=== PATIENT | female | born 1950 | race Caucasian/White ===

== ENCOUNTER 2020-01-15 10:28 | Emergency (ER) | payer MEDICARE, OTHER, SELFPAY ==
[2020-01-15 10:37] VITALS: BP 148/84; PULSE 67; RESP 17; TEMP 36.4; O2SAT 97; BMI 28.0
--- NOTE | 2020-01-15 11:14 | W.ED.EXTPRO ---
HPI - Extremity Problem General: Chief complaint: Extremity Injury, Lower Stated complaint: Rt knee pain Time Seen by Provider: 01/15/20 10:55 History of Present Illness: HPI Narrative: Patient has a right knee pain. Said she hurt it 3 to 4 months ago and started getting better then she got a knee brace because started hurting again and and then walking last night she felt some pain after walking for a while to the right knee and it was difficult to walk after that she denies any falls or any other related injuries Complaint: joint pain Onset (ago): month(s) Pain Consistency: constant Location: right and knee Severity scale (1-10): 6 Quality: aching Radiation: none Relieving factors: immobilization Exacerbating factors: range of motion and weight bearing Associated symptoms: Reports no associated symptoms; Deny chest pain, fever(s) or rash Review of Systems Const: Denies: fever(s), chills or body aches Eyes: Denies: change in vision or blurry vision ENMT: Denies: throat pain or nasal congestion Card: Denies: chest pain or dyspnea on exertion Resp: Denies: dyspnea, productive cough or non-productive cough GI: Denies: abdominal pain, nausea or vomiting Musc: Reports: joint pain (Pain with certain movements and this pain that she had was the same pain she had a few months ago), limited range of motion and other (Patient relates that she has pain when she tries to move any objects with his right foot which causes pain in the knee and she also has pain with trying to lift the leg when like she said in chair which is all consistent with meniscus type tear); Denies: extremity pain, joint swelling, joint redness, joint warmth or joint stiffness Skin/Breast: Denies: rash Neuro: Denies: headache(s) Psych: Denies: anxiety or depression Juno/Lymph: Denies: easy bruising PFS ED PFSH: Social History (Updated 01/15/20 @ 10:42 by Kristian Moore RN) Smoking and tobacco status: never smoked Alcohol intake: never Physical Exam Const: COMMON NORMALS: no acute distress, average body habitus and patient oriented x3 HENMT: COMMON NORMALS: normocephalic HEAD & SCALP: normal to inspection and normocephalic FACE & SINUS: normal facial exam Eye: COMMON NORMALS: conjunctivae normal GENERAL EYE: appearance normal, both eyes and all related structures CONJUNCTIVA: Yes conjunctivae normal Neck/C-Spine: COMMON NORMALS: no JVD Chest: COMMONS NORMALS: normal inspection of the chest Resp: COMMON NORMALS: normal respiratory effort Cardio: COMMON NORMALS: no JVD, regular rate and regular rhythm RATE: regular rate RHYTHM: regular rhythm Extremity: COMMON NORMALS: normal to inspection and full ROM RIGHT LOWER EXTREMITY: Yes knee joint (Patient has pain to the medial aspect of the knee joint does have some pain with range of motion patient does have significant pain with hyperextension to that medial aspect suspect meniscus tear) Neuro: COMMON NORMALS: patient oriented x3 Course Vital Signs: Vital signs: Vital Signs Temperature 97.5 F L 01/15/20 10:37 Pulse Rate 67 01/15/20 10:37 Respiratory Rate 17 01/15/20 10:37 Blood Pressure 148/84 01/15/20 10:37 Pulse Oximetry 97 01/15/20 10:37 Discharge Plan Discharge Patient Disposition: Home Clinical Impression: Knee meniscus pain Qualifiers: Laterality: right Qualified Code(s): M25.561 - Pain in right knee Condition: Stable Prescriptions: New Voltaren 1 % gel 4 gm TOPICAL QID Qty: 100 RF: 0 ketorolac 10 mg tablet 10 mg PO Q8H PRN (Reason: pain) 3 Days Qty: 9 RF: 0 Discharge Orders: Discharge Order (Routine); Ordered 01/15/20 Ordered By: Ronnie Joseph Referrals: Khadar Michelle MD [Family Provider] - Discharge Diet: Usual diet Discharge Activity: Increase activity as tolerated Patient Instructions: Knee Pain (ED), Torn Meniscus Activity Restrictions/Additional Instructions: Follow-up with medical provider as directed. Take medications as prescribed. Return to the ER or your medical provider if condition worsens. Please read and understand discharge instructions. If any questions ask please. Follow-up Dr. Michelle see about getting referral for physical therapy and talk about possibility of an MRI Coding Level of Care Code ED Physician Office Rep for Antonio Amador
[2020-01-15 11:16] VITALS: BP 135/82; PULSE 66; RESP 17; O2SAT 97
== END 2020-01-15 11:17 | disposition home or self-care (01) ==
LOC: ER 11:28
PROVIDERS: Emergency Provider Nurse Practitioner Family; PCP Family Medicine
DX: M25.561 Pain in right knee (principal)
CPT/HCPCS: 12345; 73562; 99281

== ENCOUNTER 2020-01-15 14:23 | Outpatient (CLI) | payer MEDICARE, OTHER, SELFPAY ==
--- NOTE | 2020-01-15 14:33 | XRR_ITS ---
PROCEDURE INFORMATION: Exam: XR Right Knee Exam date and time: 01/15/2020 2:48 PM Age: 69 years old Clinical indication: Pain; Knee; Right; Additional info: Right knee pain TECHNIQUE: Imaging protocol: XR Right knee. Views: 3 views. COMPARISON: No relevant prior studies available. FINDINGS: Bones/joints: Negative for acute bony abnormality. Soft tissues: Suprapatellar bursa effusion XR/XR knee RT 3V* [id number] IMPRESSION: No acute findings.
== END 2020-01-15 14:24 | disposition home or self-care (01) ==
LOC: RAD 14:29
PROVIDERS: PCP Family Medicine; Visit Provider Family Medicine
DX: M25.561 Pain in right knee (principal)
CPT/HCPCS: 73562

== ENCOUNTER 2020-03-31 13:05 | Outpatient (CLI) | payer MEDICARE, OTHER, SELFPAY ==
--- NOTE | 2020-03-31 13:10 | MM_ITS ---
WS: [id number] SCREENING DIGITAL MAMMOGRAM WITH CAD HISTORY: SCREENING COMPARISON: 02/26/2019, 11/14/2017 and 11/08/2016 Bilateral CC and MLO views submitted. Computer aided detection analyzed. Breast composition: The breasts are heterogeneously dense, which may obscure small masses. Asymmetry measuring 11 mm in the mid to posterior medial RIGHT breast near the 3:00 axis. Margins are ill-defined. Additional benign scattered calcifications in each breast. MM/[place] [id number] IMPRESSION: BI-RADS: 0-Incomplete: Need additional imaging evaluation FOLLOW UP: Need Additional Imaging RIGHT breast: Spot compression views (CC and MLO). True ML. Ultrasound to follo w if abnormality persists.
== END 2020-03-31 13:06 | disposition home or self-care (01) ==
PROVIDERS: PCP Family Medicine; Visit Provider Family Medicine
DX: Z12.31 Encounter for screening mammogram for malignant neoplasm of breast (principal); N64.89 Other specified disorders of breast
CPT/HCPCS: 77067

== ENCOUNTER 2020-04-23 12:41 | Outpatient (CLI) | payer MEDICARE, OTHER, SELFPAY ==
--- NOTE | 2020-04-23 13:00 | MM_ITS ---
WS: [id number] ADDITIONAL VIEWS RIGHT BREAST RIGHT breast ultrasound, limited HISTORY: abnormal mammo 11mm asymmetry RT breast COMPARISON: 03/31/2020, 02/26/2019 and 11/14/2017 Compression views right CC and MLO projection. True ML also submitted. Asymmetry persists in the medial RIGHT breast at a posterior depth. Margins are slightly spiculated a nd there are a few calcifications. Mass is along the 2 o'clock axis measuring 12 mm. RIGHT breast ultrasound, limited. Ultrasound at 2:00, 2 cm nipple demonstrates a hypoechoic mass with slightly lobulated margins measur ing 10 x 8 x 8 mm. No increased vascularity. Mass is posterior to the chest wall and corresponds to t he mammographic abnormality. MM/[place] [id number] IMPRESSION: BI-RADS: 4-Suspicious Finding-Biopsy Should Be Considered FOLLOW-UP: Biopsy Recommended Ultrasound-guided biopsy recommended of the 10 mm mass at 2:00 RIGHT breast. Notified Khadar Michelle MD at 04/23/2020 2:48 PM.
--- NOTE | 2020-04-23 13:30 | US_ITS ---
WS: [id number] ADDITIONAL VIEWS RIGHT BREAST RIGHT breast ultrasound, limited HISTORY: abnormal mammo 11mm asymmetry RT breast COMPARISON: 03/31/2020, 02/26/2019 and 11/14/2017 Compression views right CC and MLO projection. True ML also submitted. Asymmetry persists in the medial RIGHT breast at a posterior depth. Margins are slightly spiculated a nd there are a few calcifications. Mass is along the 2 o'clock axis measuring 12 mm. RIGHT breast ultrasound, limited. Ultrasound at 2:00, 2 cm nipple demonstrates a hypoechoic mass with slightly lobulated margins measur ing 10 x 8 x 8 mm. No increased vascularity. Mass is posterior to the chest wall and corresponds to t he mammographic abnormality. US/US breast RT limited* [id number] IMPRESSION: BI-RADS: 4-Suspicious Finding-Biopsy Should Be Considered FOLLOW-UP: Biopsy Recommended Ultrasound-guided biopsy recommended of the 10 mm mass at 2:00 RIGHT breast. Notified Khadar Michelle MD at 04/23/2020 2:48 PM.
== END 2020-04-23 12:42 | disposition home or self-care (01) ==
LOC: RADSHAW 12:46
PROVIDERS: PCP Family Medicine; Visit Provider Family Medicine
DX: R92.8 Other abnormal and inconclusive findings on diagnostic imaging of breast (principal); N63.12 Unspecified lump in the right breast, upper inner quadrant
CPT/HCPCS: 76642; 77065

== ENCOUNTER 2020-05-06 06:55 | Outpatient (CLI) | payer MEDICARE, OTHER, SELFPAY ==
--- NOTE | 2020-05-06 08:00 | US_ITS ---
WS: [id number] ULTRASOUND-GUIDED RIGHT BREAST BIOPSY HISTORY: abnormal mammogram 10mm right breast mass COMPARISON: None. Procedure, risks and complications are explained to the patient. Medications are reviewed. Consent is obtained. The mass in the RIGHT breast is localized with ultrasound. Mass localizes to 2:00, 2 cm from the nipp le. Skin is cleansed with ChloraPrep and anesthetized with 1% buffered lidocaine. Small dermatome is made. Under sterile conditions mass is biopsied with a 14-gauge Achieve needle. Multiple core biopsie s are performed. Material placed in formalin and sent to pathology for review. No complications encou ntered. Breast tissue marker (Bard ultrasound enhanced ribbon): Single. Patient left the radiology suite with no complications. Patient is instructed to return to [facility] or [facility] with any concerns. US/[place] [id number] IMPRESSION: 1. Uncomplicated core needle biopsy RIGHT breast mass at 2:00, 2 cm from the n ipple. PATHOLOGY: Invasive ductal carcinoma, poorly differentiated. RECOMMENDATION: Follow-up with Dr. Michelle, breast surgeon and oncology.
[2020-05-23 14:18] LABS: Miscellaneous Test See Scanned Lab Rpt
== END 2020-05-06 06:56 | disposition home or self-care (01) ==
LOC: RAD 06:59
PROVIDERS: PCP Family Medicine; Visit Provider Family Medicine
DX: N63.12 Unspecified lump in the right breast, upper inner quadrant (principal); C50.311 Malignant neoplasm of lower-inner quadrant of right female breast
CPT/HCPCS: 19083; 88305

== ENCOUNTER → 2020-05-28 13:04 | Outpatient (BNVA) | payer MEDICARE, OTHER, SELFPAY | PROVIDERS: PCP Family Medicine; Visit Provider Surgery | DX: Z11.59 Encounter for screening for other viral diseases (principal); C50.911 Malignant neoplasm of unspecified site of right female breast | CPT/HCPCS: 87635 ==

== ENCOUNTER 2020-06-04 07:27 | Day surgery (SDC) | payer MEDICARE, OTHER, SELFPAY ==
[2020-06-03 09:34] VITALS: BMI 26.0
[2020-06-04] VITALS (8 sets, daily range): BP systolic 133–191; BP diastolic 74–91; PULSE 49–77; RESP 10–18; TEMP 35.6–36.2; O2SAT 93–100
--- NOTE | 2020-06-04 | US_ITS ---
WS: [id number] ULTRASOUND-GUIDED RIGHT BREAST NEEDLE LOCALIZATION HISTORY: MALIGNANT NEOPLASM OF RIGHT BREAST, RIGHT breast mass at 2:00. Procedure, risks and complications were explained to the patient. Consent is obtained. Skin is cleansed with ChloraPrep and anesthetized with 1% buffered lidocaine. Needle and guidewire pl aced to the area of concern with no complications. Ultrasound guidance performed during the needle lo calization. Guidewire is left within the lesion. Guidewire secured and no complications encountered. Patient is being transported to the OR suite. Specimen radiograph is also reviewed. RIGHT breast mass and localization wire are included in the spe cimen. RECOMMENDATIONS: Follow-up with breast surgeon and oncology. US/US breast surgical specimen IMPRESSION: 1. Uncomplicated wire localization RIGHT breast mass at 2:00. PATHOLOGY RESULTS: Invasive ductal carcinoma, poorly differentiated. There is a lso a component of ductal carcinoma in situ. As indicated within the pathology reports synoptic report will be added post immunohistochemical stains and elayne ornelas studies.
--- NOTE | 2020-06-04 07:55 | US_ITS ---
WS: [id number] ULTRASOUND-GUIDED RIGHT BREAST NEEDLE LOCALIZATION HISTORY: MALIGNANT NEOPLASM OF RIGHT BREAST, RIGHT breast mass at 2:00. Procedure, risks and complications were explained to the patient. Consent is obtained. Skin is cleansed with ChloraPrep and anesthetized with 1% buffered lidocaine. Needle and guidewire pl aced to the area of concern with no complications. Ultrasound guidance performed during the needle lo calization. Guidewire is left within the lesion. Guidewire secured and no complications encountered. Patient is being transported to the OR suite. Specimen radiograph is also reviewed. RIGHT breast mass and localization wire are included in the spe cimen. RECOMMENDATIONS: Follow-up with breast surgeon and oncology. US/[place] [id number] IMPRESSION: 1. Uncomplicated wire localization RIGHT breast mass at 2:00. PATHOLOGY RESULTS: Invasive ductal carcinoma, poorly differentiated. There is a lso a component of ductal carcinoma in situ. As indicated within the pathology reports synoptic report will be added post immunohistochemical stains and elayne ornelas studies.
--- NOTE | 2020-06-04 07:57 | ANES.PREANE2 ---
Pre-Anesthetic Assessment Pre-Anesthetic Assessment: Height/Weight: Height 1.74 m Weight 78.925 kg Preop Diagnosis: Right breast cancer Proposed Procedure: Operation Date: 06/04/20 10:35 Proposed Procedures p right Breast Biopsy Needle Localization with lumpectomy [id number] c50.911(Right) - Horace Dalton MD s Sentinal Lymph Node Biopsy(Not Applicable) - Horace Dalton MD Familial anesthetic complications: PONV Was Beta Ingrid taken within 24 hours: Yes Last intake: Intake NPO > 8 hrs Last Liquid Date 06/03/20 Last Liquid Time 22:00 Last Solid Date 06/03/20 Last Solid Time 18:00 Social: Social History: No alcohol and No tobacco Exam: Pre-Anes Outpt Exam: alert, oriented x 3, clear to auscultation bilaterally and regular rate & rhythm Airway: Cervical ROM: WNL MP: 2 Dentition: Partials and Other (missing) CV/HEM: CV/HEM: Arrythmia (Irregular beats) and HTN Comments: mitral valve prolapse (able to achieve > 4 METS, says it doesn't bother her and she was told it wasn't serious) GI: GI: GERD and Hiatus hernia Metabolic: Metabolic: Hyperlipidemia Anesthetic Plan: ASA status: 3 Anesthesia: General Risk of > 500 ml blood loss (7ml/kg in children): No PFSH Anesthesia PFSH: Medical History (Updated 05/23/20 @ 17:04 by Horace Dalton MD) Arthritis Breast cancer, right Depression GERD (gastroesophageal reflux disease) Hiatal hernia Hyperlipidemia Hypertension Mitral valve prolapse Surgical History H/O colonoscopy 2016 H/O unilateral oophorectomy left H/O: hysterectomy History of cataract surgery History of lumpectomy of left breast History of lumpectomy of right breast Family History Family/Other Cancer maternal side, an aunt and 3 cousins with breast cancer Other CAD (coronary artery disease) Hypertension Denies family history of Diabetes Anesthesia complication Bleeding disorder Social History Smoking and tobacco status: never smoked Alcohol intake: never Household members: spouse Marital status: Current occupational status: retired History of recent travel: No Data Anesthesia Cardiac Studies: No Data to Display
[2020-06-04] MEDS: sodium chloride 0.9% 1,000 ML 30 ML IV (09:18)
--- NOTE | 2020-06-04 11:50 | W.PM.OPSUD ---
Surgery/Procedure H&P Update DATE OF PROCEDURE: June 04, 2020 DATE H&P PERFORMED: 05/23/20 H&P UPDATE INFORMATION: I have reviewed H&P completed within last 30 days, I have examined patient prior to procedure and No changes to prior documentation PREOP DIAGNOSIS: Right breast cancer PLANNED PROCEDURE: Operation Date: 06/04/20 10:35 Proposed Procedures p right Breast Biopsy Needle Localization with lumpectomy [id number] c50.911(Right) - Horace Dalton MD s Sentinal Lymph Node Biopsy(Not Applicable) - Horace Dalton MD
[2020-06-04] MEDS: isosulfan blue 10 mg/mL SDV 5mL SUBCUT (13:00)
[2020-06-04] MEDS: lidocaine 1% INJ 20 mL SUBCUT (13:40)
--- NOTE | 2020-06-04 13:47 | PM.OP ---
Operative Report Date of procedure: June 04, 2020 Pre-op Diagnosis: 10 x 8 x 8 mm invasive ductal carcinoma 2 cm from the nipple right breast Post-op diagnosis: same Procedure Done: Wire localization partial mastectomy right breast Injection of 3 cc of 1% Lymphazurin for mapping for lymph node biopsy Right axillary sentinel lymph node biopsy Specimens removed/disposition: 1. Right breast mass 2 o'clock position with invasive ductal carcinoma, short superior, long stitch lateral with localization wire 2. Posterior shave margin, outer edge inked 3. Lateral shave margin, outer edge inked 4. Right axilla sentinel lymph node biopsy Surgeon: Horace Dalton Anesthesia: General Condition: stable Disposition: PACU Procedure: The wire localization of the mammographic abnormality was performed by the radiologist under ultrasound guidance and the patient was transferred to operating room and placed under MAC after IV antibiotic had been administered. The right breast was prepped and draped in a manner . A curvilinear incision was made over the areolar margin at 2'o clock medial to the marking over the mammographic abnormality, subcutaneous tissue was divided and skin flaps were raised medially and laterally. The localization wire was grasped through the incision and using electrocautery the wire along with the breast tissue containing mammographic abnormality was dissected free from the surrounding tissue. Using 2-0 silk suture, short stitch was placed superiorly and a long stitch was placed laterally.subcutaneous flaps were created to close the surgical created defect. Medium clips were placed at the edge of the lumpectomy cavity for radiation planning and the flaps were approximated using interrupted 3-0 Vicryl suture. The wound was irrigated with saline, hemostasis ensured with electrocautery and subcutaneous tissues approximated using 3-0 running Vicryl suture and skin was closed using running subcuticular 4-0 Monocryl sutures and surgical glue. A technetium sulfur colloid had been injected previously by the radiologist in the periareolar area. 3 mL of 1% Lymphazurin was injected in the subareolar location. The breast was massaged for 5 minutes and a 2 cm incision was made in the left axilla at the edge of the hairline. The subcutaneous tissue and clavipectoral fascia was divided with electrocautery and gentle dissection revealed lymphatics with stained lymph nodes. Using electrocautery the lymph nodes were dissected free. The lymph nodes that were excised showed radioactivity and there was no significant residual radioactivity noted within the axilla. Examination of the axilla did not reveal any other lymph nodes. The clavipectoral and subcutaneous tissue was approximated using running 3-0 Vicryl suture and skin was closed using running subcuticular 4-0 Monocryl suture and Dermabond. Fluffs were used for pressure dressing. Patient was transferred to recovery room and stable condition The lumpectomy specimens were sent to mammography to obtain radiological confirmation of complete excision of the mammographic abnormality.
[2020-06-04] MEDS: HYDROcodone-acetaminophen 5-325 mg Tablet 1 TAB PO (14:54)
--- NOTE | 2020-06-04 18:36 | ANE.PACU2 ---
Inpatient post-anesthesia follow up: Airway intact: Yes Vital signs: Temperature 97.1 F Pulse Rate 52 Respiratory Rate 16 Blood Pressure 184/88 Pulse Oximetry 93 Oxygen Delivery Me thod Room Air Oxygen Flow Rate 6 Fraction of Inspir ed Oxygen Hydration adequate: Yes Nausea and vomiting: No Pain level: 2 Mental status: Baseline
[2020-06-12 08:14] LABS: Miscellaneous Test See Scanned Lab Rpt
== END 2020-06-04 15:21 | disposition home or self-care (01) ==
PROVIDERS: PCP Family Medicine; Visit Provider Surgery
PROC: (CPT 19301; principal; 2020-06-04 10:35)
PROC: (CPT 19301; 2020-06-04 10:35)
DX: C50.911 Malignant neoplasm of unspecified site of right female breast (principal); K21.9 Gastro-esophageal reflux disease without esophagitis; E78.5 Hyperlipidemia, unspecified; M19.90 Unspecified osteoarthritis, unspecified site; F32.9 Major depressive disorder, single episode, unspecified; I10 Essential (primary) hypertension
CPT/HCPCS: 19301; 38500; 12345; 19285; 88305; 88361; C1889; J0690; J2370; J2704; J2710; J3010; J3490; J7030; Q9968

== ENCOUNTER 2020-06-09 09:49 | Outpatient (CLI) | payer MEDICARE, OTHER, SELFPAY ==
--- NOTE | 2020-06-09 17:18 | ONC CON_ITS ---
Dr. Burns New Patient Note Patient: Lacey Hameed Unit #: [id number]: [id number] Dicatated By: Phuc Burns M.D.Date of Visit: Jun 09, 2020 Onc MED New Patient/Consult Referring Physician: Dr. NAZ NOGUERA M.D. History of Present Illness: Ms. Lacey Hameed, is a 69-year-old female with history of multiple lumpectomies, as per patient in 1968 she underwent left breast lumpectomy twice, 6 months apart and it was benign and done in she underwent right breast lumpectomy again it was benign as per patient in 1986 she underwent hysterectomy and bilateral oophorectomy and since then she was on Premarin till about 6 years ago and being high risk, she was getting mammogram every year and last mammogram done on March 31, 2020 showed breasts are heterogeneously dense but asymmetric measuring 11 mm in the mid to posterior medial right breast near 3:00, further studies were recommended on April 23, 2020 she underwent right breast ultrasound which confirmed at 2 o'clock position, 2 cm from nipple demonstrate hypoechoic mass with slightly lobulated margins measuring 10 x 8 x 8 mm, BI-RADS 4, biopsy was recommended which was done on May 19, 2020 and final pathology report came back invasive ductal carcinoma, poorly differentiated grade 3 ER 100% positive, PA 30% positive and HER-2/marlin negative. Subsequently patient was referred to surgery and on June 04, 2020, she underwent right breast lumpectomy with sentinel lymph node biopsy and pathology is pending Patient denies any specific complaints, no fever chills, no nausea or vomiting, no diarrhea or constipation right breast lumpectomy site is healing well. Past Medical History: Ms. Hameed's medical history consists of hypertension. Past Surgical History: Ms. Hameed's surgical/procedural history consists of breast biopsy, cataract surgery both eyes in 2015, hysterectomy in 1986, mitral valve prolapse in 1986, right breast lumpectomy in 1979, left ovary removed in 1970, uteran suspension in 1969, and left breast lumectomy in 1968. Medications: Atorvastatin Calcium 1 Tablet (of 40 mg) Oral daily, Cyclobenzaprine HCl 1 Tablet (of 10 mg) Oral daily, Hyzaar 1 Tablet (of 100-25 mg) Oral daily, Meloxicam 7.5 mg Tablet Oral daily, Metoprolol Tartrate 1 Tablet (of 100 mg) Oral b.i.d., Sertraline HCl 1 Tablet (of 50 mg) Oral daily Allergies: Demerol Social History: Ms. Hameed is . Ms. Hameed has never smoked. She has no history of drinking. Family History: Ms. Hameed's mother at age 85: alzhreimers. Ms. Hameed's father at age 85: coronary artery disease, and type II diabetes, and colon cancer. Review Of Symptoms: Constitutional - Appetite is good and weight is stable. No fever, night sweats, or hot flashes. Energy level is good, ENMT - No sinus congestion/drainage. No mouth sores. No sore throat. Positive for difficulty swallowing, Hematologic/Lymphatic - No abnormal bruising or bleeding, Respiratory - No shortness of breath. No cough. No pleuritic pain or hemoptysis, Cardiovascular - No angina pain. No palpitations, Gastrointestinal - No nausea or vomiting. Positive for heartburn and acid reflux. No diarrhea. Positive for constipation. No blood in the stool or black stools, Genitourinary (F) - No dysuria or hematuria. No urinary frequency. No urgency or incontinence, Musculoskeletal - Positive for joint and back pain, Neurologic - No headache or dizziness. No numbness or tingling. No other focal neurologic symptoms, Psychiatric - No anxiety or depression. Positive for insomnia. Vital Signs: Performed on Jun 09, 2020 11:37: 0, 0, 27.13, 1.95 sq.m, 68 in, 97 %, 78 /min, 18 /min, 169/85 mm(hg) (HIGH), 97.3 F (LOW), and 178.4 lbs (HIGH). Performance Status: 0 - Fully active, able to carry on all predisease activities without restrictions. (ECOG) Physical Examination: ENMT - No mouth sores, no thrush, no jaundice, Respiratory - Lungs are clear to auscultation, Cardiovascular - Regular rate and rhythm of heart, Abdomen - Soft, bowel sounds present, Extremities - No visible edema or rash. Lab/Imaging: Most recent lab results are not available for this patient. Impression: Invasive ductal carcinoma, poorly differentiated involving right breast per biopsy done on May 06, 2020 ER 100% positive PA 30% positive HER-2/marlin negative Status post right lumpectomy with sentinel lymph node biopsy done on June 04, 2020 final pathology pending Plan: Discussed with patient regarding her disease status and treatment options, based on her mammogram findings and right breast biopsy which showed invasive ductal carcinoma ER/PA positive HER-2/marlin negative, and recently underwent definitive surgery with right breast lumpectomy with right sentinel lymph node biopsy, now healing well, being followed by Dr. Dalton. Clinically it appears we are dealing with early stage probably stage I breast cancer ER/PA positive,HER-2/marlin negative , so we will consider prognostic profiling Oncotype DX, if it shows low score e.g. low risk, will consider hormonal therapy with Arimidex 1 mg p.o. daily for 5 years with vitamin D and calcium supplements on the other hand if it shows high risk then will discuss about role of adjuvant chemotherapy followed by hormonal therapy for 5 years in the meantime, we will give her prescription for Arimidex 1 mg p.o. daily and then she will return to clinic in 1 month with CBC CMP and we will also refer her to radiation oncology for postlumpectomy radiation therapy All the side effects possible benefits associated with hormone therapy including but not limited to hot flashes, musculoskeletal discomfort, mood swings were mentioned further teaching will done by chemotherapy nurse. Patient was advised not to use hormone supplement in any form including vaginal creams. . Signed By: Phuc Burns M.D. <<Signature on File>>
== END 2020-06-09 09:50 | disposition home or self-care (01) ==
PROVIDERS: PCP Family Medicine; Visit Provider Internal Medicine Hematology & Oncology
DX: C50.211 Malignant neoplasm of upper-inner quadrant of right female breast (principal); Z17.0 Estrogen receptor positive status [ER+]; Z79.811 Long term (current) use of aromatase inhibitors
CPT/HCPCS: 99205

== ENCOUNTER 2020-06-19 06:48 | Outpatient (CLI) | payer MEDICARE, OTHER, SELFPAY ==
--- NOTE | 2020-06-19 15:10 | N.ONRAD NP_ITS ---
Radiation Oncology Consultation Patient Name: Lacey Hameed Date of : 1950 Date of Service: 06/19/2020 Attending Physician: Jose R Lim M.D. Lacey Hameed was seen in consultation this afternoon at the request of Laura Burns M.D. for consideration of adjuvant radiotherapy for the management of her recently diagnosed early stage breast cancer. A screening mammogram (personally reviewed in [facility]) performed in March 2020 identified an asymmetry in the mid right breast measuring 1.1 cm. Ultrasonography confirmed in the right breast the 2 o'clock position, 2 cm from the nipple a 1 cm x 1 cm x 0.8 cm x 0.8 cm hypoechoic mass with lobulated margins. An ultrasound-guided biopsy completed on May 06, 2020 diagnosed a grade III invasive ductal carcinoma with a breast cancer profile positive for estrogen receptor (100%), progesterone receptor, (30%) and negative for HER-2. The Ki-67 was 8%. A right partial mastectomy with sentinel lymph node biopsy performed by Sha Vu M.D. The pathology report obtained in [facility] (and directly canvassed by [facility]) confirmed a 0.6 cm invasive ductal carcinoma (grade III) with a low-grade solid DCIS measuring 3 mm. all surgical margins were uninvolved by malignancy and one harvested sentinel lymph node was negative for metastasis. The Oncotype DX Breast Recurrence Score was 19. The patient presents for evaluation regarding adjuvant radiotherapy. Following a discussion concerning the patient's AJCC stage IA (T1CN0) breast cancer, The National Comprehensive Cancer Network Guidelines recommends the omission of breast irradiation in patients 70 years of age or older with estrogen receptor positive, clinically node-negative, T1-2 tumors who will receive adjuvant endocrine therapy. I summarized the randomized trial (CALGB 9343) that established this standard published in The [place] Journal of Medicine. The study demonstrated the addition of radiotherapy to endocrine therapy improved local control compared to endocrine therapy alone without an overall survival advantage. The patient would like to evaluate her treatment options prior to making a final decision. Signed by: Dr. Jose R Lim 06/23/2020 1:44:20 PM
== END 2020-06-19 06:49 | disposition home or self-care (01) ==
LOC: ONCMED 06:50
PROVIDERS: PCP Family Medicine; Visit Provider Radiology Radiation Oncology
DX: C50.211 Malignant neoplasm of upper-inner quadrant of right female breast (principal); Z17.0 Estrogen receptor positive status [ER+]; Z90.11 Acquired absence of right breast and nipple
CPT/HCPCS: 99214

== ENCOUNTER 2020-07-11 05:47 | Outpatient (RCR) | payer MEDICARE, OTHER, SELFPAY ==
--- NOTE | 2020-06-24 | CT_ITS ---
Radiation Therapy Planning CT images; total exam DLP: 779.92 mGy-cm MTDD
--- NOTE | 2020-07-08 15:32 | ONCRAD TMN_ITS ---
Radiation Oncology Treatment Management Note Patient Name: Lacey Hameed Date of : 1950 Date of Service: 07/08/2020 Attending Physician: Jose R Lim M.D. Lacey Hameed is a 69 year-old white female diagnosed with an initial clinical stage IA (T1cN0) grade 3 invasive ductal carcinoma of the upper-inner quadrant of the right breast. The breast cancer profile was positive for estrogen receptor and progesterone receptor and negative for HER2. The Ki-67 of 8%. A partial mastectomy with sentinel lymph node biopsy was performed on June 04, 2020. She has received 5.4 Gy of a prescribed 40 Gy delivered with a 3D conformal radiotherapy plan utilizing opposed tangential portal alvarez utilizing a [id number] treatment technique. An additional 10 Gy in 5 fractions will be administered to the surgical bed at the conclusion of the whole breast treatment as a consequence of the patient's high-grade tumor characteristics. Upon review of systems, she denied any breast complaints to radiotherapy. On physical examination, the patient weighed 175 lbs. Her temperature was 98.7 ???F with a blood pressure of 136/75 mmHg. Her pulse was 61 bpm and her respiratory rate was 18. There was no erythema within the treatment alvarez of the right breast. Continue right breast hypofractionated radiotherapy as prescribed. Signed by: Dr. Jose R Lim 07/08/2020 3:31:14 PM
[2020-07-09 12:33] LABS: Basophils % 0.8 %; Eosinophils # 0.2 10^3/uL (0.0-0.8); Eosinophils % 4.7 %; Hematocrit 41.5 % (37.0-47.0); Hemoglobin 13.1 g/dL (11.5-15.3); Lymphocytes # 1.5 10^3/uL (0.8-4.8); Mean Corpuscular HGB Conc 31.6 g/dL (30.0-36.0); Mean Corpuscular Hemoglobin 26.8 pg (28.0-34.0); Mean Corpuscular Volume 84.9 fL (81-99); Mean Platelet Volume 9.9 fL (7.4-10.4); Monocytes # 0.5 10^3/uL (0.2-0.9); Monocytes % 9.8 %; Neutrophils # 2.63 10^3/uL (1.8-7.7); Neutrophils % 53.5 %; Nucleated Red Blood Cells % 0 %; Platelet Count 225 10^3/cmm (130-400); Red Blood Count 4.89 10^6/uL (4.1-5.3); Red Cell Distribution Width 13.9 % (12.1-15.1); White Blood Count 4.9 10^3/uL (4.0-10.0)
[2020-07-09 12:52] LABS: Alanine Aminotransferase 14 U/L (0-33); Albumin Level 4.8 g/dL (3.5-5.2); Alkaline Phosphatase 102 IU/L (35-105); Anion Gap 13.2 (5-19); Aspartate Amino Transferase 17 U/L (0-32); Blood Urea Nitrogen 21 mg/dL (8-23); Calcium 10.6 mg/dL (8.5-10.5); Carbon Dioxide 28 mmol/L (22-29); Chloride 101 mmol/L (98-107); Globulin 2.6 g/dL (1.3-4.6); Glucose 101 mg/dL (65-115); Osmolality Calculated 289 mOsm/kg (285-295); Potassium 4.2 mmol/L (3.5-5.1); Sodium 138 mmol/L (136-145); Total Protein 7.4 g/dL (6.6-8.7)
--- NOTE | 2020-07-09 16:10 | ONC FU_ITS ---
Dr. Burns follow up note Patient: Lacey Hameed Unit #: [id number]: 1950 Dicatated By: Phuc Burns M.D.Date of Visit:Jul 09, 2020 Onc Med Follow-up/Prog Note History of Present Illness: Ms. Lacey Hameed, is a 69-year-old female with history of multiple lumpectomies, as per patient in 1968 she underwent left breast lumpectomy twice, 6 months apart and it was benign and done in she underwent right breast lumpectomy again it was benign as per patient in 1986 she underwent hysterectomy and bilateral oophorectomy and since then she was on Premarin till about 6 years ago and being high risk, she was getting mammogram every year and last mammogram done on March 31, 2020 showed breasts are heterogeneously dense but asymmetric measuring 11 mm in the mid to posterior medial right breast near 3:00, further studies were recommended on April 23, 2020 she underwent right breast ultrasound which confirmed at 2 o'clock position, 2 cm from nipple demonstrate hypoechoic mass with slightly lobulated margins measuring 10 x 8 x 8 mm, BI-RADS 4, biopsy was recommended which was done on May 19, 2020 and final pathology report came back invasive ductal carcinoma, poorly differentiated grade 3 ER 100% positive, [place] 30% positive and HER-2/marlin negative. Subsequently patient was referred to surgery and on June 04, 2020, she underwent right breast lumpectomy with sentinel lymph node biopsy, Oncotype DX score was 19, means less than 1% absolute chemotherapy benefit Patient was started on Arimidex 1 mg p.o. daily for 5 years on June 09, 2020 and was referred to radiation oncology for postlumpectomy radiation therapy Came for follow-up, denies any specific complaints, no fever chills, no nausea or vomiting no diarrhea or constipation, no night sweats, but occasionally hot flashes, no bony pains, no musculoskeletal discomfort, tolerating Arimidex well. Also started on postlumpectomy radiation therapy with recently Medications: Atorvastatin Calcium 1 Tablet (of 40 mg) Oral daily, Cyclobenzaprine HCl 1 Tablet (of 10 mg) Oral daily, Hyzaar 1 Tablet (of 100-25 mg) Oral daily, Meloxicam 7.5 mg Tablet Oral daily, Metoprolol Tartrate 1 Tablet (of 100 mg) Oral b.i.d., Sertraline HCl 1 Tablet (of 50 mg) Oral daily Allergies: Demerol Review of Systems: Review of Systems is not available for this patient. Vital Signs: Performed on Jul 09, 2020 13:45 Height - 68.00 in Weight - 175.6 lbs (HIGH) BSA - 1.93 sq.m BMI - 26.70 Temperature - 97.8 F (LOW) Pulse - 68 /min Respiration - 68 /min (HIGH) BP - 120/60 mm(hg) O2 Sat - 97 % Pain - 0 Fatigue - 0 Performance Status: 0 - Fully active, able to carry on all predisease activities without restrictions. (ECOG) Physical Examination: Respiratory - Lungs are clear to auscultation, Cardiovascular - Regular rate and rhythm of heart, Gastrointestinal - Soft, bowel sounds present, Extremities - No visible edema or rash. Lab/Imaging: Most recent lab results are not available for this patient. Impression: Invasive ductal carcinoma, poorly differentiated involving right breast per biopsy done on May 06, 2020 ER 100% positive KS 30% positive HER-2/marlin negative Status post right lumpectomy with sentinel lymph node biopsy done on June 04, 2020 Clinically, stage IA (T1CN0), grade 3, Oncotype DX score 19, absolute chemotherapy benefit less than 1% Started on Arimidex 1 mg p.o. daily along with vitamin D and calcium on June 09, 2020 Plan: Discussed with patient regarding her labs white blood count 4.9 hemoglobin 13.1 hematocrit 41.5 platelets 225,000 CMP within normal limits and Oncotype DX score which is 19 e.g. no benefit from systemic chemotherapy Clinically, patient is doing well, tolerating Arimidex well but with expected side effects e.g. occasionally hot flashes. Her Oncotype DX score is 19 which means absolute chemotherapy benefit less than 1% based on that patient was advised to continue Arimidex for total 5 years along with vitamin D and calcium supplement and was also advised to maintain physical activity to minimize risk of bone demineralization. Patient was referred to radiation oncology for postlumpectomy radiation therapy. Return to clinic in 4 months with CBC CMP . Signed By: Phuc Burns M.D. <<Signature on File>>
== END 2020-07-13 23:59 | disposition home or self-care (01) ==
LOC: ONCMED 05:47
PROVIDERS: Internal Medicine Hematology & Oncology; Absent Provider Radiology Radiation Oncology; PCP Family Medicine; Visit Provider Radiology Radiation Oncology
DX: Z51.0 Encounter for antineoplastic radiation therapy (principal); C50.211 Malignant neoplasm of upper-inner quadrant of right female breast; Z17.0 Estrogen receptor positive status [ER+]; Z90.11 Acquired absence of right breast and nipple; Z79.811 Long term (current) use of aromatase inhibitors
CPT/HCPCS: 77280; 77295; 77300; 77334; 77387; 77412; 80053; 85025; 99214

== ENCOUNTER 2020-08-01 10:03 | Outpatient (RCR) | payer MEDICARE, OTHER, SELFPAY ==
--- NOTE | 2020-07-15 15:23 | ONCRAD TMN_ITS ---
Radiation Oncology Weekly Treatment Management Patient: Yoseph Spears MR#: [id number] : 1950> Attending Physician: Dr. Regan Fragoso Date of Service: 07/15/2020 Referring Physician(s) : Phuc Burns M.D. Diagnosis: C50.211 - Malignant neoplasm of upper-inner quadrant of right female breast, Diagnosed 05/06/2020 (Active) Stage IA, T1b, pN0, M0, G3, HER2 Neg, ER Pos, OH P Radiotherapy to date: Course: RT Breast Prone, Treatment Site: Breast Ca, Ref. ID: [id number], Energy: 6X, Dose/Fx (cGy): 266.7, #Fx: , Dose Correction (cGy): 0, Total Dose (cGy): 1,866.7, Start Date: 07/07/2020, Elapsed Days: 8 Reason for visit: The patient is being seen today as part of their regularly scheduled weekly on treatment visits to assess for acute toxicities from radiotherapy. Review of Systems: Doing well overall. Minimal fatigue. Modest breast redness noted. Using an aloe based skin lotion. Active at home. Vital Signs: Performed on 07/15/2020 2:50 PM BMI - 26.791 kg/m2 (high), Height - 68.00 in, Weight - 176.2 lbs, Temperature - 98.9 f, Pulse - 76, Respiration - 18, O2 Sat - 96 %, Pain - 0 and BP - 125/ 70 mm(hg). Physical Exam: Minimal right breast erythema Imaging: Radiation therapy imaging related to accurate target localization (i.e. KV, MV and CBCT) was reviewed. Appropriate changes, if any, were made to ensure treatment accuracy. Plan: Good tolerance of treatment. Will continue as planned. Signed by: Dr. Regan Fragoso 07/15/2020 3:22:00 PM
--- NOTE | 2020-07-23 15:07 | ONCRAD TMN_ITS ---
Radiation Oncology Treatment Management Note Patient Name: Lacey Hameed Date of : 1950 Date of Service: 07/23/2020 Attending Physician: Jose R Lim M.D. Lacey Hameed is a 69 year-old white female diagnosed with an initial clinical stage IA (T1cN0) grade 3 invasive ductal carcinoma of the upper-inner quadrant of the right breast. The breast cancer profile was positive for estrogen receptor and progesterone receptor and negative for HER2. The Ki-67 of 8%. A partial mastectomy with sentinel lymph node biopsy was performed on June 04, 2020. She has received 34.7 Gy of a prescribed 40 Gy delivered with a 3D conformal radiotherapy plan utilizing opposed tangential portal alvarez utilizing a [id number] treatment technique. An additional 10 Gy in 5 fractions will be administered to the surgical bed at the conclusion of the whole breast treatment as a consequence of the patient's high-grade tumor characteristics. Upon review of systems, she denied any breast complaints to radiotherapy. On physical examination, the patient weighed 175 lbs. Her temperature was 97.9 ???F with a blood pressure of 101/68 mmHg. Her pulse was 56 bpm and her respiratory rate was 20. There was no erythema within the treatment alvarez of the right breast. Continue right breast hypofractionated radiotherapy as planned. Signed by: Dr. Jose R Lim 07/23/2020 3:05:59 PM
--- NOTE | 2020-07-29 15:01 | ONCRAD TMN_ITS ---
Radiation Oncology Treatment Management Note Patient Name: Lacey Hameed Date of : 1950 Date of Service: 07/29/2020 Attending Physician: Jose R Lim M.D. Lacey Hameed is a 69 year-old white female diagnosed with an initial clinical stage IA (T1cN0) grade 3 invasive ductal carcinoma of the upper-inner quadrant of the right breast. The breast cancer profile was positive for estrogen receptor and progesterone receptor and negative for HER2. The Ki-67 of 8%. A partial mastectomy with sentinel lymph node biopsy was performed on June 04, 2020. She has received 44 Gy of a prescribed 50 Gy delivered with a 3D conformal radiotherapy plan utilizing opposed tangential portal alvarez utilizing a [id number] treatment technique. Upon review of systems, she denied any breast complaints to radiotherapy. On physical examination, the patient weighed 175 lbs. Her temperature was 98.5 ???F with a blood pressure of 136/70 mmHg. Her pulse was 53 bpm and her respiratory rate was 18. There was no erythema within the treatment alvarez of the right breast. Continue right breast hypofractionated radiotherapy as prescribed.. Signed by: Dr. Jose R Lim 07/29/2020 3:00:44 PM
== END 2020-08-13 23:59 | disposition home or self-care (01) ==
LOC: ONCMED 10:03
PROVIDERS: Absent Provider Radiology Radiation Oncology; PCP Family Medicine; Visit Provider Radiology Radiation Oncology
DX: Z51.0 Encounter for antineoplastic radiation therapy (principal); C50.211 Malignant neoplasm of upper-inner quadrant of right female breast; Z17.0 Estrogen receptor positive status [ER+]
CPT/HCPCS: 77307; 77334; 77336; 77387; 77412

== ENCOUNTER 2020-08-22 06:21 | Outpatient (RCR) | payer MEDICARE, OTHER, SELFPAY ==
--- NOTE | 2020-08-22 10:25 | ONCRAD EPV_ITS ---
Radiation Oncology Follow-Up Note Patient Name: Lacey Hameed Date of : 1950 Date of Service: 08/22/2020 Attending Physician: Jose R Lim M.D. Timo Hameed returned to my office this morning for a routinely scheduled follow-up appointment. She completed adjuvant radiotherapy in July for the management of a pathological stage IA (T1cN0) grade 3 invasive ductal carcinoma of the upper-inner quadrant of the right breast. The breast cancer profile was positive for estrogen receptor and progesterone receptor and negative for HER2. The Ki-67 of 8%. A partial mastectomy with sentinel lymph node biopsy was performed on June 04, 2020. Daily radiotherapy was administered between the dates of July 07, 2020 through August 01, 2020, A prescribed dose of 50 Gy was delivered in 20 fractions encompassing 26 elapsed days. On review of systems, she did not report any breast complaints. On physical examination, her temperature was 97.8 ???F with a blood pressure of 130/92 mmHg. The pulse was 72 bpm and her respiratory rate was 18. Slight hyperpigmentation was present in the right breast. In summary, Ms. Hameed returned for a routine post-radiotherapy follow-up. She does not have any sequelae from treatment. She has started Arimidex and will continue follow-up with her medical oncologist. Signed by: Dr. Jose R Lim 08/22/2020 10:24:14 AM
== END 2020-09-12 23:59 | disposition home or self-care (01) ==
LOC: ONCMED 06:21
PROVIDERS: Absent Provider Radiology Radiation Oncology; PCP Family Medicine; Visit Provider Radiology Radiation Oncology
DX: C50.211 Malignant neoplasm of upper-inner quadrant of right female breast (principal); Z17.0 Estrogen receptor positive status [ER+]
CPT/HCPCS: 99024

== ENCOUNTER 2020-11-06 12:17 | Outpatient (CLI) | payer MEDICARE, OTHER, SELFPAY ==
[2020-11-06 13:00] LABS: Basophils % 1.1 %; Eosinophils # 0.3 10^3/uL (0.0-0.8); Eosinophils % 6.7 %; Hematocrit 38.1 % (37.0-47.0); Hemoglobin 12.3 g/dL (11.5-15.3); Lymphocytes % 26.1 %; Mean Corpuscular HGB Conc 32.3 g/dL (30.0-36.0); Mean Corpuscular Hemoglobin 27.7 pg (28.0-34.0); Mean Corpuscular Volume 85.8 fL (81-99); Mean Platelet Volume 9.9 fL (7.4-10.4); Monocytes # 0.3 10^3/uL (0.2-0.9); Monocytes % 8.4 %; Neutrophils # 2.14 10^3/uL (1.8-7.7); Neutrophils % 57.7 %; Nucleated Red Blood Cells % 0 %; Platelet Count 204 10^3/cmm (130-400); Red Blood Count 4.44 10^6/uL (4.1-5.3); Red Cell Distribution Width 13.1 % (12.1-15.1); White Blood Count 3.7 10^3/uL (4.0-10.0)
[2020-11-06 13:29] LABS: Alanine Aminotransferase 16 U/L (0-33); Albumin Level 4.5 g/dL (3.5-5.2); Alkaline Phosphatase 97 IU/L (35-105); Anion Gap 13.2 (5-19); Aspartate Amino Transferase 21 U/L (0-32); Blood Urea Nitrogen 20 mg/dL (8-23); Calcium 9.3 mg/dL (8.5-10.5); Carbon Dioxide 28 mmol/L (22-29); Chloride 102 mmol/L (98-107); Globulin 2.3 g/dL (1.3-4.6); Glucose 102 mg/dL (65-115); Osmolality Calculated 291 mOsm/kg (285-295); Potassium 4.2 mmol/L (3.5-5.1); Sodium 139 mmol/L (136-145); Total Bilirubin 0.7 mg/dL (0.15-1.2); Total Protein 6.8 g/dL (6.6-8.7)
--- NOTE | 2020-11-06 15:01 | ONC FU_ITS ---
Dr. Burns follow up note Patient: Lacey Hameed Unit #: [id number]: 1950 Dicatated By: Phuc Burns M.D.Date of Visit:Nov 06, 2020 Onc Med Follow-up/Prog Note History of Present Illness: Ms. Lacey Hameed, is a 69-year-old female with history of multiple lumpectomies, as per patient in 1968 she underwent left breast lumpectomy twice, 6 months apart and it was benign and done in she underwent right breast lumpectomy again it was benign as per patient in 1986 she underwent hysterectomy and bilateral oophorectomy and since then she was on Premarin till about 6 years ago and being high risk, she was getting mammogram every year and last mammogram done on March 31, 2020 showed breasts are heterogeneously dense but asymmetric measuring 11 mm in the mid to posterior medial right breast near 3:00, further studies were recommended on April 23, 2020 she underwent right breast ultrasound which confirmed at 2 o'clock position, 2 cm from nipple demonstrate hypoechoic mass with slightly lobulated margins measuring 10 x 8 x 8 mm, BI-RADS 4, biopsy was recommended which was done on May 19, 2020 and final pathology report came back invasive ductal carcinoma, poorly differentiated grade 3 ER 100% positive, [place] 30% positive and HER-2/marlin negative. Subsequently patient was referred to surgery and on June 04, 2020, she underwent right breast lumpectomy with sentinel lymph node biopsy, Oncotype DX score was 19, means less than 1% absolute chemotherapy benefit Patient was started on Arimidex 1 mg p.o. daily for 5 years on June 09, 2020 and s/p postlumpectomy radiation therapy,Completed on August 01, 2020 Came for follow-up, denies any specific complaints, no fever chills, no nausea vomiting, no diarrhea or constipation, no jaundice, no new bony pains, tolerating Arimidex well except off and on mild to moderate hot flashes Medications: amLODIPine Besylate 1 Tablet (of 2.5 mg) Oral daily, Atorvastatin Calcium 1 Tablet (of 40 mg) Oral daily, Cyclobenzaprine HCl 1 Tablet (of 10 mg) Oral daily, hydroCHLOROthiazide 1 Tablet (of 25 mg) Oral daily, Losartan Potassium 1 Tablet (of 100 mg) Oral b.i.d., Meloxicam 7.5 mg Tablet Oral daily, Metoprolol Tartrate 1 Tablet (of 100 mg) Tablet Oral b.i.d., Sertraline HCl 1 Tablet (of 50 mg) Oral daily Allergies: Demerol Review of Systems: Review of Systems is not available for this patient. Vital Signs: Vitals are not available for this patient. Performance Status: 0 - Fully active, able to carry on all predisease activities without restrictions. (ECOG) Physical Examination: Respiratory - Lungs are clear to auscultation, Cardiovascular - Regular rate and rhythm of heart, Gastrointestinal - Soft, bowel sounds present, Extremities - No visible edema or rash. Lab/Imaging: Most recent lab results are not available for this patient. Impression: Invasive ductal carcinoma, poorly differentiated involving right breast per biopsy done on May 06, 2020 ER 100% positive [place] 30% positive HER-2/marlin negative Status post right lumpectomy with sentinel lymph node biopsy done on June 04, 2020 Clinically, stage IA (T1CN0), grade 3, Oncotype DX score 19, absolute chemotherapy benefit less than 1% Started on Arimidex 1 mg p.o. daily along with vitamin D and calcium on June 09, 2020, Postlumpectomy radiation therapy to the right breast completed on August 01, 2020 Plan: . Discussed with patient regarding her labs white blood count 3.7 hemoglobin 12.3 hematocrit 38.1 platelets 204,000 CMP within normal limits Clinically, patient doing well with no new signs symptom suggestive of recurrence of disease, tolerating daily Arimidex along with vitamin D and calcium well but with expected side effect like off and on hot flashes., Patient completed post lumpectomy radiation therapy on August 01, 2020 , Considering her age and side effect like demineralization associated with aromatase inhibitor, will obtain baseline DEXA scan prior to her next visit, patient return to clinic in 4 months with CBC CMP and DEXA scan Mild leukopenia etiology unclear could be transitional, we will monitor with follow-up CBC. Patient was advised to maintain active lifestyle and regular exercise. We will continue with Arimidex 1 mg p.o. daily along with vitamin D and calcium. Signed By: Phuc Burns M.D. <<Signature on File>>
== END 2020-11-06 12:18 | disposition home or self-care (01) ==
LOC: ONCMED 12:19
PROVIDERS: PCP Family Medicine; Visit Provider Internal Medicine Hematology & Oncology
DX: C50.811 Malignant neoplasm of overlapping sites of right female breast (principal); Z17.0 Estrogen receptor positive status [ER+]; Z90.11 Acquired absence of right breast and nipple; E55.9 Vitamin D deficiency, unspecified; E83.51 Hypocalcemia; Z79.811 Long term (current) use of aromatase inhibitors; Z92.3 Personal history of irradiation
CPT/HCPCS: 80053; 85025; 99214

== ENCOUNTER 2021-04-13 13:35 | Outpatient (CLI) | payer MEDICARE, OTHER, SELFPAY ==
--- NOTE | 2021-04-13 13:40 | XR_ITS ---
WS: [id number] DEXA (DUAL ENERGY X-RAY ABSORPTIOMETRY) Bone mineral density was performed using a [employer] machine. HISTORY: ASYMPTOMATIC MENOPAUSAL STATE COMPARISON: None available. Lumbar spine BMD (L1-L4): 0.929 g/cm2 T score: -2.1 Z score: -0.9 Total hip BMD: Left: 0.853 g/cm2. T score: -1.2 Z score: 0.0 Right: 0.842 g/cm2. T score: -1.3 Z score: -0.1 10 year probability of a major osteoporotic fracture is 13.8%. XR/XR DEXA axial skeleton* 85013 IMPRESSION: OSTEOPENIA based upon the WHO classification for females.
== END 2021-04-13 13:36 | disposition home or self-care (01) ==
PROVIDERS: PCP Family Medicine; Visit Provider Internal Medicine Hematology & Oncology
DX: Z78.0 Asymptomatic menopausal state (principal); M85.80 Other specified disorders of bone density and structure, unspecified site
CPT/HCPCS: 77080

== ENCOUNTER 2021-04-16 12:31 | Outpatient (CLI) | payer MEDICARE, OTHER, SELFPAY ==
[2021-04-16 13:22] LABS: Basophils # 0.1 10^3/uL (0.0-0.1); Basophils % 1.4 %; Eosinophils # 0.3 10^3/uL (0.0-0.8); Eosinophils % 7.9 %; Hematocrit 38.3 % (37.0-47.0); Hemoglobin 12.5 g/dL (11.5-15.3); Lymphocytes # 1.1 10^3/uL (0.8-4.8); Lymphocytes % 26.9 %; Mean Corpuscular HGB Conc 32.6 g/dL (30.0-36.0); Mean Corpuscular Hemoglobin 28.2 pg (28.0-34.0); Mean Corpuscular Volume 86.5 fl (81-99); Mean Platelet Volume 9.7 fL (7.4-10.4); Monocytes # 0.4 10^3/uL (0.2-0.9); Neutrophils # 2.29 10^3/uL (1.8-7.7); Neutrophils % 54.6 %; Nucleated Red Blood Cells % 0 %; Platelet Count 214 10^3/cmm (130-400); Red Blood Count 4.43 10^6/uL (4.1-5.3); Red Cell Distribution Width 13.1 % (12.1-15.1); White Blood Count 4.2 10^3/uL (4.0-10.0)
[2021-04-16 13:31] LABS: Alanine Aminotransferase 31 U/L (0-33); Albumin Level 4.6 g/dL (3.5-5.2); Alkaline Phosphatase 106 IU/L (35-105); Anion Gap 14.4 (5-19); Aspartate Amino Transferase 35 U/L (0-32); Blood Urea Nitrogen 23 mg/dL (8-23); Calcium 9.6 mg/dL (8.5-10.5); Carbon Dioxide 27 mmol/L (22-29); Chloride 99 mmol/L (98-107); Globulin 2.6 g/dL (1.3-4.6); Glucose 89 mg/dL (65-115); Osmolality Calculated 285 mOsm/kg (285-295); Potassium 4.4 mmol/L (3.5-5.1); Sodium 136 mmol/L (136-145); Total Bilirubin 0.8 mg/dL (0.15-1.2); Total Protein 7.2 g/dL (6.6-8.7)
--- NOTE | 2021-04-16 15:19 | ONC FU_ITS ---
Dr. Burns follow up note Patient: Lacey Hameed Unit #: [id number]: 1950 Dicatated By: Phuc Burns M.D.Date of Visit:Apr 16, 2021 Onc Med Follow-up/Prog Note History of Present Illness: Ms. Lacey Hameed, is a 70-year-old female with history of multiple lumpectomies, as per patient in 1968 she underwent left breast lumpectomy twice, 6 months apart and it was benign and done in she underwent right breast lumpectomy again it was benign as per patient in 1986 she underwent hysterectomy and bilateral oophorectomy and since then she was on Premarin till about 6 years ago and being high risk, she was getting mammogram every year and last mammogram done on March 31, 2020 showed breasts are heterogeneously dense but asymmetric measuring 11 mm in the mid to posterior medial right breast near 3:00, further studies were recommended on April 23, 2020 she underwent right breast ultrasound which confirmed at 2 o'clock position, 2 cm from nipple demonstrate hypoechoic mass with slightly lobulated margins measuring 10 x 8 x 8 mm, BI-RADS 4, biopsy was recommended which was done on May 19, 2020 and final pathology report came back invasive ductal carcinoma, poorly differentiated grade 3 ER 100% positive, [place] 30% positive and HER-2/marlin negative. Subsequently patient was referred to surgery and on June 04, 2020, she underwent right breast lumpectomy with sentinel lymph node biopsy, Oncotype DX score was 19, means less than 1% absolute chemotherapy benefit Patient was started on Arimidex 1 mg p.o. daily for 5 years on June 09, 2020 and s/p postlumpectomy radiation therapy,Completed on August 01, 2020 Came for follow-up, denies any specific complaint except off-and-on generalized weakness and fatigue occasionally hot flashes otherwise tolerating Arimidex/vitamin D and calcium well. Denies any fever chills denies any nausea or vomiting denies any diarrhea constipation. As per patient, with change in weather sometimes she feels weak and tired. And moreover recently she is not doing regular exercise either Medications: amLODIPine Besylate 1 Tablet (of 2.5 mg) Oral daily, Atorvastatin Calcium 1 Tablet (of 40 mg) Oral daily, Cyclobenzaprine HCl 1 Tablet (of 10 mg) Oral daily, hydroCHLOROthiazide 1 Tablet (of 25 mg) Oral daily, Losartan Potassium 1 Tablet (of 100 mg) Oral b.i.d., Meloxicam 7.5 mg Tablet Oral daily, Metoprolol Tartrate 1 Tablet (of 100 mg) Tablet Oral b.i.d., Sertraline HCl 1 Tablet (of 50 mg) Oral daily Allergies: Demerol Review of Systems: Review of Systems is not available for this patient. Vital Signs: Performed on Apr 16, 2021 14:11 Height - 68.00 in Weight - 174.8 lbs (LOW) BSA - 1.93 sq.m BMI - 26.58 Temperature - 97.8 F (LOW) Pulse - 51 /min (LOW) Respiration - 16 /min BP - 121/71 mm(hg) O2 Sat - 92 % (LOW) Pain - 0 Fatigue - 8 Performance Status: 0 - Fully active, able to carry on all predisease activities without restrictions. (ECOG) Physical Examination: Respiratory - Lungs are clear to auscultation, Cardiovascular - Regular rate and rhythm of heart, Gastrointestinal - Soft, bowel sounds present, Extremities - No visible edema. Lab/Imaging: Most recent lab results are not available for this patient. Impression: Invasive ductal carcinoma, poorly differentiated involving right breast per biopsy done on May 06, 2020 ER 100% positive [place] 30% positive HER-2/marlin negative Status post right lumpectomy with sentinel lymph node biopsy done on June 04, 2020 Clinically, stage IA (T1CN0), grade 3, Oncotype DX score 19, absolute chemotherapy benefit less than 1% Started on Arimidex 1 mg p.o. daily along with vitamin D and calcium on June 09, 2020, Postlumpectomy radiation therapy to the right breast completed on August 01, 2020 Plan: Discussed with patient regarding her labs white blood count 4.2 hemoglobin 12.5 medical 38.3, platelets 214,000 CMP within normal limit except creatinine 1.2 DEXA scan shows 10-year of major osteoporotic fracture probability is 13.8% and hip fracture probability is about 2.6% Clinically, patient doing well with no new signs symptom suggestive of recurrence of disease, tolerating Arimidex/vitamin D/calcium well, will continue with same her blood work-up is within normal range except mild renal insufficiency patient was advised to maintain good hydration and follow-up with the PMD especially regarding renal function test and the return to clinic in 6 months in the meantime we will consider follow-up mammogram next couple of months. Signed By: Phuc Burns M.D. <<Signature on File>>
== END 2021-04-16 12:32 | disposition home or self-care (01) ==
LOC: ONCMED 12:35
PROVIDERS: PCP Family Medicine; Visit Provider Internal Medicine Hematology & Oncology
DX: C50.811 Malignant neoplasm of overlapping sites of right female breast (principal); Z17.0 Estrogen receptor positive status [ER+]; Z90.11 Acquired absence of right breast and nipple; E55.9 Vitamin D deficiency, unspecified; Z79.818 Long term (current) use of other agents affecting estrogen receptors and estrogen levels; Z79.899 Other long term (current) drug therapy
CPT/HCPCS: 36415; 80053; 85025; 99214

== ENCOUNTER 2021-06-10 08:49 | Outpatient (CLI) | payer MEDICARE, OTHER, SELFPAY ==
--- NOTE | 2021-06-10 08:57 | MM_ITS ---
WS: [id number] BILATERAL DIAGNOSTIC DIGITAL MAMMOGRAM WITH CAD HISTORY: HX OF BREAST CA COMPARISON: 04/23/2020, 03/31/2020, 02/26/2019 and 11/14/2017 Bilateral CC and MLO views submitted. Computer aided detection analyzed. Breast composition: The breasts are heterogeneously dense, which may obscure small masses. Postsurgic al changes are noted in the medial RIGHT breast at 3:00. No recurrent mass or calcifications. Benign calcifications in each breast. The parenchymal pattern fibroglandular densities within each breast ar e otherwise unchanged. MM/[place] [address] IMPRESSION: BI-RADS: 2-Benign FOLLOW UP: 1 Year Follow-up
== END 2021-06-10 08:50 | disposition home or self-care (01) ==
PROVIDERS: PCP Family Medicine; Visit Provider Internal Medicine Hematology & Oncology
DX: Z85.3 Personal history of malignant neoplasm of breast (principal)
CPT/HCPCS: 77066

== ENCOUNTER 2021-08-13 08:18 | Outpatient (CLI) | payer MEDICARE, OTHER, SELFPAY ==
[2021-08-13 08:45] VITALS: BMI 25.8
--- NOTE | 2021-08-13 08:46 | ECG_ITS ---
[facility] Test Date: 2021-08-13 Pat Name: Lacey Hameed Department: Room: Gender: Female [employer]: : 1950 Requested By: Khadar Pérez Order Number: [id number] Monik MD: Maira Grimm M.D. Interpretive Statements NAME OF STUDY: LEXISCAN SESTAMIBI STRESS TEST INDICATION: Chest Pain, Abnormal EKG PROCEDURE: At the baseline, the EKG revealed sinus bradycardia with a rate of 49 bpm. The baseline blood pressure was 133/70 mm Hg with a heart rate of 49 beats/min. Lexiscan was infused over a period of 20 seconds. A total of 0.4 milligrams of Lexiscan was infused. The stress phase was continued for a total of 5 minutes. Heart rate at the end of the stress phase was 75 with a blood pressure 132/66. The EKG at the peak infusion revealed no significant changes. Sestamibi was injected 20 seconds after the Lexiscan infusion. Blood pressure at the end of the recovery phase was 133/70 with a heart rate of 67 per minute. CONCLUSION: 1. No significant EKG changes with the LexiScan infusion 2. No LexiScan induced chest pain or cardiac arrhythmia 3. Normal blood pressure and heart rate response 4. Sestamibi/sestamibi perfusion scan pending; see separate report. Electronically Signed On 08-14-2021 15:00:08 CDT by Maira Grimm M.D. [id number]
--- NOTE | 2021-08-13 08:47 | NMCV_ITS ---
NM allie perf SPECT r/s* [id number] Lacey Hameed Age: 70 Gender: F : 1950 Exam Date: 08/13/2021 09:05 Ordering Phys: Khadar Michelle MD Technologist: DENNY Villar Exam Location: [facility] Indications: ABNORMAL EKG, CHEST PAIN STRESS TEST [facility] IMAGE PROTOCOL Rest/Stress 1 Lexiscan Day Radiopharmaceutical Dose (mCi) Administration Site Administered by Rest: Tc-99m 10.6 IV DENNY Wheat Sestamibi Stress:Tc-99m 32.5 IV DENNY Wheat Sestamibi Rest: 13-Aug-2021 60 Discovery 630 Stress: 13-Aug-2021 30 Discovery 630 0.4mg Lexiscan. Images obtained in supine and prone position. SPECT RESULTS Technical Quality: Excellent Raw Data Analysis: Normal Image Corrections: No attenuation or motion correction applied Summed Stress Score: 1 Summed Rest Score: 0 Summed Difference Score: 1 PERFUSION FINDINGS A very small area of slightly decreased tracer uptake was noted in the apical lateral region with some reversibility in the supine imaging. However with the prone imaging, there is no perfusion defects FUNCTIONAL RESULTS (calculated via Gated SPECT) Stress Image LV EF (%): 86 Stress EDV (mL):0 TID: 0.97 Stress ESV (mL):8 FUNCTIONAL FINDINGS: Segmental wall motion analysis revealing no gross wall motion abnormalities IMPRESSIONS 1. Myocardial perfusion imaging revealing patchy areas of persistent decreased tracer uptake in the anteroseptal and inferolateral regions, most likely are present attenuation artifacts. 2. Normal LV ejection fraction of 86%. 3. LV wall motion analysis revealing no gross wall motion abnormalities. 4. Normal LV volume. Low probability for coronary ischemia, based on the above findings Dr Maira Grimm MD FACC (Electronically Signed) Final Date: 13 August 2021 13:58 S
[2021-08-13] MEDS: regadenoson 0.4 Mg/5 ml Syringe IVP (10:10)
[2021-08-13 10:34] VITALS: BP 133/70; PULSE 70
== END 2021-08-13 08:19 | disposition home or self-care (01) ==
LOC: CDL 08:18
PROVIDERS: PCP Family Medicine; Visit Provider Family Medicine
DX: R07.9 Chest pain, unspecified (principal); R94.31 Abnormal electrocardiogram [ECG] [EKG]
CPT/HCPCS: 78452; 93017; A9500; J2785

== ENCOUNTER → 2021-09-15 10:45 | Outpatient (BNVA) | payer MEDICARE, OTHER, SELFPAY | PROVIDERS: PCP Family Medicine; Visit Provider Internal Medicine Cardiovascular Disease | DX: R00.2 Palpitations (principal); I49.9 Cardiac arrhythmia, unspecified; I49.1 Atrial premature depolarization | CPT/HCPCS: 93229 ==

== ENCOUNTER 2021-10-15 15:07 | Oncology outpatient (recurring) (ONCR) | payer MEDICARE, OTHER, SELFPAY | END 2021-10-15 23:59 | disposition home or self-care (01) | PROVIDERS: PCP Family Medicine; Visit Provider Internal Medicine Hematology & Oncology | DX: C50.911 Malignant neoplasm of unspecified site of right female breast (principal) | CPT/HCPCS: 99214 ==

== ENCOUNTER → 2021-10-20 11:54 | Outpatient (BNVA) | payer MEDICARE, OTHER, SELFPAY | PROVIDERS: PCP Family Medicine; Visit Provider Surgery | DX: C50.911 Malignant neoplasm of unspecified site of right female breast (principal) | CPT/HCPCS: 99214 ==

== ENCOUNTER 2021-11-23 14:31 | Oncology outpatient (recurring) (ONCR) | payer MEDICARE, OTHER, SELFPAY ==
[2021-11-23 15:24] LABS: Basophils # 0.1 10^3/uL (0.0-0.1); Basophils % 1.2 %; Eosinophils # 0.4 10^3/uL (0.0-0.8); Eosinophils % 9.1 %; Hematocrit 32.7 % (37.0-47.0); Hemoglobin 11.1 g/dL (11.5-15.3); Lymphocytes # 1.1 10^3/uL (0.8-4.8); Lymphocytes % 25.7 %; Mean Corpuscular HGB Conc 33.9 g/dL (30.0-36.0); Mean Corpuscular Hemoglobin 27.3 pg (28.0-34.0); Mean Corpuscular Volume 80.5 fl (81-99); Mean Platelet Volume 9.9 fL (7.4-10.4); Monocytes # 0.5 10^3/uL (0.2-0.9); Neutrophils # 2.14 10^3/uL (1.8-7.7); Neutrophils % 52.5 %; Nucleated Red Blood Cells % 0 %; Platelet Count 218 10^3/cmm (130-400); Red Blood Count 4.06 10^6/uL (4.1-5.3); Red Cell Distribution Width 13.2 % (12.1-15.1); White Blood Count 4.1 10^3/uL (4.0-10.0)
[2021-11-23 15:55] LABS: Alanine Aminotransferase 16 U/L (0-33); Albumin Level 4.3 g/dL (3.5-5.2); Alkaline Phosphatase 115 IU/L (35-105); Blood Urea Nitrogen 24 mg/dL (8-23); Calcium 9.2 mg/dL (8.5-10.5); Carbon Dioxide 25 mmol/L (22-29); Chloride 100 mmol/L (98-107); Globulin 2.5 g/dL (1.3-4.6); Glucose 118 mg/dL (65-115); Osmolality Calculated 289 mOsm/kg (285-295); Sodium 137 mmol/L (136-145); Total Bilirubin 0.7 mg/dL (0.15-1.2); Total Protein 6.8 g/dL (6.6-8.7)
[2021-11-23 15:56] LABS: Anion Gap 15.9 (5-19); Potassium 3.9 mmol/L (3.5-5.1)
[2021-11-23 15:57] LABS: Aspartate Amino Transferase 22 U/L (0-32)
== END 2021-12-13 23:59 | disposition home or self-care (01) ==
PROVIDERS: PCP Family Medicine; Visit Provider Internal Medicine Hematology & Oncology
DX: C50.911 Malignant neoplasm of unspecified site of right female breast (principal); D50.9 Iron deficiency anemia, unspecified
CPT/HCPCS: 36415; 80053; 85025; 99214

== ENCOUNTER 2021-12-23 14:20 | Oncology outpatient (recurring) (ONCR) | payer MEDICARE, OTHER, SELFPAY ==
[2021-12-23 14:45] LABS: Basophils % 0.9 %; Eosinophils # 0.3 10^3/uL (0.0-0.8); Eosinophils % 5.8 %; Hemoglobin 11.6 g/dL (11.5-15.3); Lymphocytes # 1.3 10^3/uL (0.8-4.8); Lymphocytes % 29.5 %; Mean Corpuscular HGB Conc 33.1 g/dL (30.0-36.0); Mean Corpuscular Hemoglobin 26.9 pg (28.0-34.0); Mean Platelet Volume 9.8 fL (7.4-10.4); Monocytes # 0.5 10^3/uL (0.2-0.9); Monocytes % 10.2 %; Neutrophils # 2.41 10^3/uL (1.8-7.7); Neutrophils % 53.4 %; Nucleated Red Blood Cells % 0 %; Platelet Count 216 10^3/cmm (130-400); Red Blood Count 4.32 10^6/uL (4.1-5.3); Red Cell Distribution Width 13.2 % (12.1-15.1); White Blood Count 4.5 10^3/uL (4.0-10.0)
[2021-12-23 15:25] LABS: Alanine Aminotransferase 14 U/L (0-33); Albumin Level 4.6 g/dL (3.5-5.2); Alkaline Phosphatase 103 IU/L (35-105); Anion Gap 13.1 (5-19); Aspartate Amino Transferase 21 U/L (0-32); Blood Urea Nitrogen 22 mg/dL (8-23); Calcium 9.5 mg/dL (8.5-10.5); Carbon Dioxide 27 mmol/L (22-29); Chloride 100 mmol/L (98-107); Ferritin 13 ng/mL (15-150); Globulin 2.3 g/dL (1.3-4.6); Glucose 96 mg/dL (65-115); Iron 89 ug/dL (37-145); Osmolality Calculated 285 mOsm/kg (285-295); Percent Saturation 21.5 % (20-50); Potassium 4.1 mmol/L (3.5-5.1); Sodium 136 mmol/L (136-145); Total Bilirubin 0.9 mg/dL (0.15-1.2); Total Iron Binding Capacity 413 mcg/dl; Total Protein 6.9 g/dL (6.6-8.7); Unsaturated Iron Binding 324 ug/dL (112-347)
== END 2022-01-13 23:59 | disposition home or self-care (01) ==
PROVIDERS: Nurse Practitioner Family; PCP Family Medicine; Visit Provider Internal Medicine Hematology & Oncology
DX: D50.9 Iron deficiency anemia, unspecified; C50.211 Malignant neoplasm of upper-inner quadrant of right female breast; Z17.0 Estrogen receptor positive status [ER+]; Z92.3 Personal history of irradiation; Z79.811 Long term (current) use of aromatase inhibitors; R53.83 Other fatigue; R53.1 Weakness; Z79.899 Other long term (current) drug therapy
CPT/HCPCS: 36415; 80053; 82728; 83540; 83550; 85025; 99214

== ENCOUNTER 2022-01-28 14:15 | Oncology outpatient (recurring) (ONCR) | payer MEDICARE, OTHER, SELFPAY ==
[2022-01-28 15:18] LABS: Basophils % 0.9 %; Eosinophils # 0.3 10^3/uL (0.0-0.8); Eosinophils % 6.5 %; Hematocrit 38.3 % (37.0-47.0); Hemoglobin 12.2 g/dL (11.5-15.3); Lymphocytes # 1.3 10^3/uL (0.8-4.8); Lymphocytes % 27.9 %; Mean Corpuscular HGB Conc 31.9 g/dL (30.0-36.0); Mean Corpuscular Volume 84.7 fl (81-99); Mean Platelet Volume 9.5 fL (7.4-10.4); Monocytes # 0.5 10^3/uL (0.2-0.9); Monocytes % 10.5 %; Neutrophils # 2.42 10^3/uL (1.8-7.7); Nucleated Red Blood Cells % 0 %; Platelet Count 214 10^3/cmm (130-400); Red Blood Count 4.52 10^6/uL (4.1-5.3); Red Cell Distribution Width 13.9 % (12.1-15.1); White Blood Count 4.5 10^3/uL (4.0-10.0)
[2022-01-28 15:19] LABS: Reticulocyte % 0.9 % (0.5-2.0)
[2022-01-28 18:46] LABS: Ferritin 42 ng/mL (15-150); Iron 186 ug/dL (37-145); Percent Saturation 50.9 % (20-50); Total Iron Binding Capacity 365 mcg/dl; Unsaturated Iron Binding 179 ug/dL (112-347); Vitamin B12 537 pg/mL (232-1245)
== END 2022-02-12 23:59 | disposition home or self-care (01) ==
PROVIDERS: PCP Family Medicine; Visit Provider Internal Medicine Hematology & Oncology
DX: C50.211 Malignant neoplasm of upper-inner quadrant of right female breast (principal); D50.9 Iron deficiency anemia, unspecified; Z17.0 Estrogen receptor positive status [ER+]; Z92.3 Personal history of irradiation; Z79.811 Long term (current) use of aromatase inhibitors; R53.1 Weakness; Z79.899 Other long term (current) drug therapy
CPT/HCPCS: 82607; 82728; 83540; 83550; 85025; 85045; 99214

== ENCOUNTER 2022-03-02 14:29 | Oncology outpatient (recurring) (ONCR) | payer MEDICARE, OTHER, SELFPAY ==
[2022-03-02 14:55] LABS: Basophils # 0.1 10^3/uL (0.0-0.1); Basophils % 0.9 %; Eosinophils # 0.3 10^3/uL (0.0-0.8); Eosinophils % 5.3 %; Hematocrit 37.7 % (37.0-47.0); Hemoglobin 12.3 g/dL (11.5-15.3); Lymphocytes # 1.2 10^3/uL (0.8-4.8); Lymphocytes % 21.7 %; Mean Corpuscular HGB Conc 32.6 g/dL (30.0-36.0); Mean Corpuscular Hemoglobin 28.4 pg (28.0-34.0); Mean Corpuscular Volume 87.1 fl (81-99); Mean Platelet Volume 9.5 fL (7.4-10.4); Monocytes # 0.5 10^3/uL (0.2-0.9); Monocytes % 8.9 %; Neutrophils # 3.45 10^3/uL (1.8-7.7); Nucleated Red Blood Cells % 0 %; Platelet Count 224 10^3/cmm (130-400); Red Blood Count 4.33 10^6/uL (4.1-5.3); Red Cell Distribution Width 14.2 % (12.1-15.1); White Blood Count 5.5 10^3/uL (4.0-10.0)
[2022-03-02 15:20] LABS: Ferritin 56 ng/mL (15-150); Iron 145 ug/dL (37-145); Percent Saturation 41.9 % (20-50); Total Iron Binding Capacity 346 mcg/dl; Unsaturated Iron Binding 201 ug/dL (112-347)
[2022-03-02 15:35] LABS: Vitamin B12 512 pg/mL (232-1245)
== END 2022-03-15 23:59 | disposition home or self-care (01) ==
PROVIDERS: PCP Family Medicine; Visit Provider Internal Medicine Hematology & Oncology
DX: C50.211 Malignant neoplasm of upper-inner quadrant of right female breast (principal); D50.9 Iron deficiency anemia, unspecified; Z17.0 Estrogen receptor positive status [ER+]; Z92.3 Personal history of irradiation; Z79.811 Long term (current) use of aromatase inhibitors; Z79.899 Other long term (current) drug therapy
CPT/HCPCS: 36415; 82607; 82728; 83540; 83550; 85025; 99214

== ENCOUNTER → 2022-03-23 12:58 | Outpatient (BNVA) | payer MEDICARE, OTHER, SELFPAY | PROVIDERS: PCP Family Medicine; Visit Provider Surgery | DX: D64.9 Anemia, unspecified (principal); K21.9 Gastro-esophageal reflux disease without esophagitis | CPT/HCPCS: 99203 ==

== ENCOUNTER 2022-06-10 09:55 | Oncology outpatient (recurring) (ONCR) | payer MEDICARE, OTHER, SELFPAY ==
--- NOTE | 2022-06-10 | US_ITS ---
DIAGNOSTIC BILATERAL DIGITAL BREAST TOMOSYNTHESIS MAMMOGRAPHY WITH CAD LEFT breast ultrasound, limited. HISTORY: History of RIGHT breast cancer. Palpable area LEFT breast. COMPARISON: 06/10/2021, 03/31/2020 and 02/26/2019 TECHNIQUE: Bilateral craniocaudad, mediolateral oblique, and mediolateral views are submitted with tomosynthesis and SM. Spot compression LEFT MLO. Computer aided detection utilized. Breast composition: The breasts are heterogeneously dense, which may obscure small masses. Postoperative sutures are present in the medial RIGHT breast posteriorly. There are additional benign calcifications in the RIGHT breast and skin thickening from treatment. Palpable area in the LEFT breast is very posterior and seen only on the lateral projection. There are benign calcifications. No underlying mass is identified. LEFT breast ultrasound, limited. No ultrasound abnormality is noted within the LEFT breast at the palpable site. There is dense fibroglandular tissue and benign calcification with shadowing. IMPRESSION: BI-RADS: 2-Benign FOLLOW UP: 1 Year Follow-up BELLA
--- NOTE | 2022-06-10 11:28 | MM_ITS ---
WS: [id number] DIAGNOSTIC BILATERAL DIGITAL BREAST TOMOSYNTHESIS MAMMOGRAPHY WITH CAD LEFT breast ultrasound, limited. HISTORY: History of RIGHT breast cancer. Palpable area LEFT breast. COMPARISON: 06/10/2021, 03/31/2020 and 02/26/2019 TECHNIQUE: Bilateral craniocaudad, mediolateral oblique, and mediolateral views are submitted with to mosynthesis and SM. Spot compression LEFT MLO. Computer aided detection utilized. Breast composition: The breasts are heterogeneously dense, which may obscure small masses. Postoperat theresa sutures are present in the medial RIGHT breast posteriorly. There are additional benign calcifica tions in the RIGHT breast and skin thickening from treatment. Palpable area in the LEFT breast is alec y posterior and seen only on the lateral projection. There are benign calcifications. No underlying m ass is identified. LEFT breast ultrasound, limited. No ultrasound abnormality is noted within the LEFT breast at the palpable site. There is dense fibro glandular tissue and benign calcification with shadowing. MM/[place] [id number] IMPRESSION: BI-RADS: 2-Benign FOLLOW UP: 1 Year Follow-up
== END 2022-06-15 23:59 | disposition home or self-care (01) ==
LOC: RAD 09:55 → ONCMED 06-16 12:16
PROVIDERS: PCP Family Medicine; Visit Provider Internal Medicine Hematology & Oncology
DX: Z85.3 Personal history of malignant neoplasm of breast (principal); N63.20 Unspecified lump in the left breast, unspecified quadrant
CPT/HCPCS: 76642; 77062; G0279

== ENCOUNTER 2022-07-07 06:17 | Day surgery (SDC) | payer MEDICARE, OTHER, SELFPAY ==
[2022-07-05 08:19] VITALS: BMI 27.3
[2022-07-07 06:41] VITALS: BP 161/88; PULSE 62; RESP 18; TEMP 36.3; O2SAT 95
[2022-07-07] MEDS: sodium chloride 0.9% 1,000 ML 30 ML IV (06:48)
--- NOTE | 2022-07-07 06:52 | ANES.PREANE2 ---
Pre-Anesthetic Assessment Height/Weight: Height 1.73 m Weight 81.647 kg Temp Pulse Resp BP Pulse Ox O2 Del Method 97.3 F L 62 18 161/88 95 07/07/22 06:41 07/07/22 06:41 07/07/22 06:41 07/07/22 06:41 07/07/22 06:41 07/07/22 06:41 Preop Diagnosis: 10 x 8 x 8 mm invasive ductal carcinoma 2 cm from the nipple right breast Operation Date: 07/07/22 07:30 Proposed Procedures p 8[address]30 egd, 10137 colon K21.9,D50.9(Not Applicable) - [facility] Moncada DO s Colonoscopy(Not Applicable) - [facility] Moncada DO Familial anesthetic complications: none Was Beta Ingrid taken within 24 hours: Yes Was Clonidine taken within 24 hours: N/A Last intake: Intake Last Liquid Date 07/06/22 Last Liquid Time 22:00 Last Solid Date 07/05/22 Last Solid Time 18:00 Last Intake: 22:00 Social No alcohol and No tobacco Exam alert, oriented x 3, clear to auscultation bilaterally and regular rate & rhythm Airway Submandibular: within normal limits Cervical ROM: within normal limits Mallampati: Class II Dentition: full Pulmonary None reported CV/HEM Anemia, Arrythmia (PVC) and Hypertension None reported Hepatic None reported GI Gastroesophageal Reflux Disease Metabolic None reported Musc/skel Osteoarthritis/DJD Neuropsych None reported Anesthetic Plan ASA status: 2 Anesthesia: MAC Risk of > 500 ml blood loss (7ml/kg in children): No Medications/Allergies Home Medications Medication Instructions Recorded Confirmed Last Taken Type calcium carb-vit R1-ylziotvoo-srpy 1 tab PO DAILY 05/23/20 07/05/22 07/05/22 History 333 mg-200 unit-133 mg-5 mg tablet sertraline 50 mg tablet 50 mg PO DAILY 05/23/20 07/05/22 07/06/22 History pantoprazole 40 mg tablet,delayed 40 mg PO DAILY 04/24/21 07/05/22 07/05/22 History release hydrochlorothiazide 25 mg tablet 25 mg PO DAILY 10/15/21 07/05/22 07/05/22 History melatonin 12 mg tablet 10 mg PO DAILY 10/15/21 07/05/22 07/06/22 History polyethylene glycol 3350 17 17 g PO DAILY PRN Constipation 12/23/21 07/05/22 07/05/22 History gram/dose oral powder (Miralax) cyanocobalamin (vitamin B-12) 500 500 mcg PO DAILY 02/01/22 07/05/22 07/05/22 History mcg tablet (Vitamin B-12) ferrous sulfate 250 mg (50 mg 250 mg PO DAILY 02/01/22 07/07/22 07/04/22 History iron) tablet,extended release losartan 100 mg tablet 100 mg PO DAILY #30 tabs 02/01/22 07/05/22 07/05/22 Rx metoprolol tartrate 100 mg tablet 100 mg PO BID #60 tabs 02/01/22 07/07/22 07/07/22 Rx anastrozole 1 mg tablet See Rx Instructions .Route 02/03/22 07/05/22 07/05/22 Rx .COMPLEX #90 tabs atorvastatin 40 mg tablet See Rx Instructions .Route 04/07/22 07/05/22 07/05/22 Rx .COMPLEX #90 tabs amlodipine 2.5 mg tablet 2.5 mg PO BID #60 tabs 05/03/22 07/05/22 07/05/22 Rx cyclobenzaprine 10 mg tablet See Rx Instructions .Route 06/01/22 07/05/22 07/06/22 Rx .COMPLEX #30 tabs meloxicam 7.5 mg tablet See Rx Instructions .Route 06/07/22 07/05/22 07/06/22 Rx .COMPLEX #90 tabs Allergies Allergy/AdvReac Type Severity Reaction Status Date / Time meperidine [From Demerol] Allergy ADR-Vomitin Verified 03/23/22 13:02 g Current Medications Generic Name Dose Route Start Last Admin Trade Name Freq PRN Reason Stop Dose Admin Sodium Chloride 1,000 mls @ 30 mls/hr 07/07/22 06:30 07/07/22 06:48 Sodium Chloride 0.9% IV 07/08/22 06:29 30 mls/hr .Q24H MELISSA Administration PFSH Anesthesia Medical History Arthritis Breast cancer, right Depression GERD (gastroesophageal reflux disease) Hiatal hernia Hyperlipidemia Hypertension Iron deficiency anemia Mitral valve prolapse Surgical History H/O colonoscopy 2015 H/O unilateral oophorectomy left H/O: hysterectomy History of cataract surgery History of lumpectomy of left breast History of lumpectomy of right breast Status post right breast lumpectomy (06/04/20) sentinel lymph node biopsy Family History Family/Other Cancer maternal side, an aunt and 3 cousins with breast cancer Other CAD (coronary artery disease) Hypertension Denies family history of Diabetes Anesthesia complication Bleeding disorder Social History Smoking and tobacco status: never smoked Alcohol intake: never Household members: spouse Marital status: Current occupational status: retired History of recent travel: No Data Anesthesia Cardiac Studies: Sestamibi Stress Test (Cardiology) 08/13/21 Cardiac Event Monitor 09/15/21
--- NOTE | 2022-07-07 07:28 | PM.HP ---
Providers/Chief Complaint Primary Care Provider: Khadar Michelle MD Chief Complaint: K21.9, D50.9 History of Present Illness Lacey Hameed is a 71 year old female here for EGD and colonoscopy Medications/Allergies Home Medications Medication Instructions Recorded Confirmed Last Taken Type calcium carb-vit P1-fdsbintrp-clze 1 tab PO DAILY 05/23/20 07/05/22 07/05/22 History 333 mg-200 unit-133 mg-5 mg tablet sertraline 50 mg tablet 50 mg PO DAILY 05/23/20 07/05/22 07/06/22 History pantoprazole 40 mg tablet,delayed 40 mg PO DAILY 04/24/21 07/05/22 07/05/22 History release hydrochlorothiazide 25 mg tablet 25 mg PO DAILY 10/15/21 07/05/22 07/05/22 History melatonin 12 mg tablet 10 mg PO DAILY 10/15/21 07/05/22 07/06/22 History polyethylene glycol 3350 17 17 g PO DAILY PRN Constipation 12/23/21 07/05/22 07/05/22 History gram/dose oral powder (Miralax) cyanocobalamin (vitamin B-12) 500 500 mcg PO DAILY 02/01/22 07/05/22 07/05/22 History mcg tablet (Vitamin B-12) ferrous sulfate 250 mg (50 mg 250 mg PO DAILY 02/01/22 07/07/22 07/04/22 History iron) tablet,extended release losartan 100 mg tablet 100 mg PO DAILY #30 tabs 02/01/22 07/05/22 07/05/22 Rx metoprolol tartrate 100 mg tablet 100 mg PO BID #60 tabs 02/01/22 07/07/22 07/07/22 Rx anastrozole 1 mg tablet See Rx Instructions .Route 02/03/22 07/05/22 07/05/22 Rx .COMPLEX #90 tabs atorvastatin 40 mg tablet See Rx Instructions .Route 04/07/22 07/05/22 07/05/22 Rx .COMPLEX #90 tabs amlodipine 2.5 mg tablet 2.5 mg PO BID #60 tabs 05/03/22 07/05/22 07/05/22 Rx cyclobenzaprine 10 mg tablet See Rx Instructions .Route 06/01/22 07/05/22 07/06/22 Rx .COMPLEX #30 tabs meloxicam 7.5 mg tablet See Rx Instructions .Route 06/07/22 07/05/22 07/06/22 Rx .COMPLEX #90 tabs Allergies Allergy/AdvReac Type Severity Reaction Status Date / Time meperidine [From Demerol] Allergy ADR-Vomitin Verified 03/23/22 13:02 g PFSH Acute PFSH: Medical History Arthritis Breast cancer, right Depression GERD (gastroesophageal reflux disease) Hiatal hernia Hyperlipidemia Hypertension Iron deficiency anemia Mitral valve prolapse Surgical History H/O colonoscopy 2015 H/O unilateral oophorectomy left H/O: hysterectomy History of cataract surgery History of lumpectomy of left breast History of lumpectomy of right breast Status post right breast lumpectomy (06/04/20) sentinel lymph node biopsy Family History Family/Other Cancer maternal side, an aunt and 3 cousins with breast cancer Other CAD (coronary artery disease) Hypertension Denies family history of Diabetes Anesthesia complication Bleeding disorder Social History Smoking and tobacco status: never smoked Alcohol intake: never Household members: spouse Marital status: Current occupational status: retired History of recent travel: No Vitals/I&O/Wt Last Vital Signs Temp 97.3 F L 07/07/22 06:41 Pulse 62 07/07/22 06:41 Resp 18 07/07/22 06:41 BP 161/88 07/07/22 06:41 Pulse Ox 95 07/07/22 06:41 O2 Del Method 07/07/22 06:41 Weight last 48 hrs Weight 180 lb A&P Assessment and plan (1) GERD (gastroesophageal reflux disease): (2) Anemia: Plan EGD and colonoscopy Attestations Medical Necessity Statement*: Home Coding Level of Care Code Acute Code for Chg Fwd Diagnoses GERD (gastroesophageal reflux disease) K21.9 Anemia D64.9
[2022-07-07 08:08] VITALS: BP 128/70; PULSE 44; RESP 16; TEMP 36.2; O2SAT 95
[2022-07-07 08:20] VITALS: BP 150/72; PULSE 49; RESP 16; O2SAT 96
--- NOTE | 2022-07-07 13:56 | ANE.PACU2 ---
Inpatient post-anesthesia follow up: Airway intact: Yes Vital signs: Temperature 97.2 F Pulse Rate 49 Respiratory Rate 16 Blood Pressure 150/72 Pulse Oximetry 96 Oxygen Delivery Me thod Room Air Oxygen Flow Rate 2 Fraction of Inspir ed Oxygen Hydration adequate: Yes Nausea and vomiting: No Pain level: 1 Mental status: Baseline
== END 2022-07-07 08:50 | disposition home or self-care (01) ==
PROVIDERS: Family Provider Licensed Practical Nurse; PCP Family Medicine; Visit Provider Surgery
PROC: 0DJ08ZZ Inspection of Upper Intestinal Tract, Via Natural or Artificial Opening Endoscopic (ICD-10-PCS; CPT 43235; principal; 2022-07-07 07:30)
PROC: 0DJD8ZZ Inspection of Lower Intestinal Tract, Via Natural or Artificial Opening Endoscopic (ICD-10-PCS; CPT 45378; 2022-07-07 07:30)
DX: D50.9 Iron deficiency anemia, unspecified (principal); K21.9 Gastro-esophageal reflux disease without esophagitis; K57.30 Diverticulosis of large intestine without perforation or abscess without bleeding; K64.8 Other hemorrhoids; K44.9 Diaphragmatic hernia without obstruction or gangrene; K29.70 Gastritis, unspecified, without bleeding; I10 Essential (primary) hypertension; M19.90 Unspecified osteoarthritis, unspecified site; Z85.3 Personal history of malignant neoplasm of breast; E78.5 Hyperlipidemia, unspecified
CPT/HCPCS: 43239; 45378; 88305; J2704; J7030

== ENCOUNTER 2022-07-12 14:00 | Oncology outpatient (recurring) (ONCR) | payer MEDICARE, OTHER, SELFPAY ==
[2022-07-12 15:05] LABS: Basophils % 0.8 %; Eosinophils # 0.3 10^3/uL (0.0-0.8); Hematocrit 36.3 % (37.0-47.0); Hemoglobin 11.8 g/dL (11.5-15.3); Lymphocytes # 1.4 10^3/uL (0.8-4.8); Lymphocytes % 28.5 %; Mean Corpuscular HGB Conc 32.5 g/dL (30.0-36.0); Mean Corpuscular Hemoglobin 28.6 pg (28.0-34.0); Mean Corpuscular Volume 87.9 fl (81-99); Mean Platelet Volume 9.6 fL (7.4-10.4); Monocytes # 0.5 10^3/uL (0.2-0.9); Monocytes % 9.8 %; Neutrophils # 2.74 10^3/uL (1.8-7.7); Neutrophils % 54.7 %; Nucleated Red Blood Cells % 0 %; Platelet Count 207 10^3/cmm (130-400); Red Blood Count 4.13 10^6/uL (4.1-5.3); Red Cell Distribution Width 12.7 % (12.1-15.1)
[2022-07-12 15:28] LABS: Alanine Aminotransferase 21 U/L (0-33); Albumin Level 4.3 g/dL (3.5-5.2); Alkaline Phosphatase 111 U/L (35-105); Anion Gap 15.1 (5-19); Aspartate Amino Transferase 23 U/L (0-32); Blood Urea Nitrogen 19 mg/dL (8-23); Calcium 9.8 mg/dL (8.5-10.5); Carbon Dioxide 27 mmol/L (22-29); Chloride 100 mmol/L (98-107); Ferritin 47 ng/mL (15-150); Globulin 2.4 g/dL (1.3-4.6); Glucose 98 mg/dL (65-115); Iron 94 ug/dL (37-145); Osmolality Calculated 288 mOsm/kg (285-295); Percent Saturation 29.5 % (20-50); Potassium 4.1 mmol/L (3.5-5.1); Sodium 138 mmol/L (136-145); Total Bilirubin 0.8 mg/dL (0.15-1.2); Total Iron Binding Capacity 318 mcg/dl; Total Protein 6.7 g/dL (6.6-8.7); Unsaturated Iron Binding 224 ug/dL (112-347)
== END 2022-07-13 23:59 | disposition home or self-care (01) ==
PROVIDERS: PCP Family Medicine; Visit Provider Internal Medicine Hematology & Oncology
DX: C50.211 Malignant neoplasm of upper-inner quadrant of right female breast (principal); D50.9 Iron deficiency anemia, unspecified; Z17.0 Estrogen receptor positive status [ER+]; Z79.811 Long term (current) use of aromatase inhibitors; Z79.899 Other long term (current) drug therapy; Z92.3 Personal history of irradiation; K57.30 Diverticulosis of large intestine without perforation or abscess without bleeding; K44.9 Diaphragmatic hernia without obstruction or gangrene
CPT/HCPCS: 36415; 80053; 82728; 83540; 83550; 85025; 99214

== ENCOUNTER → 2022-07-21 17:21 | Outpatient (BNVA) | payer MEDICARE, OTHER, SELFPAY | PROVIDERS: PCP Family Medicine; Visit Provider Surgery | DX: Z09 Encounter for follow-up examination after completed treatment for conditions other than malignant neoplasm (principal) | CPT/HCPCS: 99024; 99212 ==

== ENCOUNTER → 2022-10-19 10:52 | Outpatient (BNVA) | payer MEDICARE, OTHER, SELFPAY | PROVIDERS: PCP Family Medicine; Visit Provider Surgery | DX: Z98.890 Other specified postprocedural states (principal) | CPT/HCPCS: 99213 ==

== ENCOUNTER 2022-11-10 12:57 | Oncology outpatient (recurring) (ONCR) | payer MEDICARE, OTHER, SELFPAY ==
[2022-11-10 13:13] VITALS: BP 118/71; PULSE 78; RESP 18; TEMP 36.5; O2SAT 96
[2022-11-10 13:16] LABS: Basophils % 0.8 %; Eosinophils # 0.3 10^3/uL (0.0-0.8); Eosinophils % 6.4 %; Hematocrit 35.5 % (37.0-47.0); Hemoglobin 11.7 g/dL (11.5-15.3); Lymphocytes # 1.3 10^3/uL (0.8-4.8); Mean Corpuscular Hemoglobin 28.3 pg (28.0-34.0); Mean Corpuscular Volume 85.7 fl (81-99); Mean Platelet Volume 9.4 fL (7.4-10.4); Monocytes # 0.5 10^3/uL (0.2-0.9); Monocytes % 10.1 %; Neutrophils # 2.81 10^3/uL (1.8-7.7); Neutrophils % 56.5 %; Nucleated Red Blood Cells % 0 %; Platelet Count 221 10^3/cmm (130-400); Red Blood Count 4.14 10^6/uL (4.1-5.3); Red Cell Distribution Width 12.8 % (12.1-15.1)
[2022-11-10 13:35] LABS: Alanine Aminotransferase 17 U/L (0-33); Albumin Level 4.5 g/dL (3.5-5.2); Alkaline Phosphatase 105 U/L (35-105); Anion Gap 15.5 (5-19); Aspartate Amino Transferase 23 U/L (0-32); Blood Urea Nitrogen 27 mg/dL (8-23); Calcium 9.3 mg/dL (8.5-10.5); Carbon Dioxide 24 mmol/L (22-29); Chloride 100 mmol/L (98-107); Ferritin 59 ng/mL (15-150); Globulin 2.4 g/dL (1.3-4.6); Glucose 101 mg/dL (65-115); Iron 103 ug/dL (37-145); Osmolality Calculated 285 mOsm/kg (285-295); Percent Saturation 29.6 % (20-50); Potassium 4.5 mmol/L (3.5-5.1); Sodium 135 mmol/L (136-145); Total Bilirubin 0.9 mg/dL (0.15-1.2); Total Iron Binding Capacity 347 mcg/dl; Total Protein 6.9 g/dL (6.6-8.7); Unsaturated Iron Binding 244 ug/dL (112-347)
== END 2022-11-12 23:59 | disposition home or self-care (01) ==
PROVIDERS: PCP Family Medicine; Visit Provider Internal Medicine Hematology & Oncology
DX: C50.211 Malignant neoplasm of upper-inner quadrant of right female breast (principal); Z17.0 Estrogen receptor positive status [ER+]; D50.9 Iron deficiency anemia, unspecified; Z79.811 Long term (current) use of aromatase inhibitors; Z79.899 Other long term (current) drug therapy; Z92.3 Personal history of irradiation; R79.89 Other specified abnormal findings of blood chemistry
CPT/HCPCS: 36415; 80053; 82728; 83540; 83550; 85025; 99214

== ENCOUNTER 2023-02-09 07:19 | Outpatient (CLI) | payer MEDICARE, OTHER, SELFPAY ==
--- NOTE | 2023-02-09 07:26 | XRR_ITS ---
PROCEDURE INFORMATION: Exam: XR Bilateral Sacroiliac Joints Exam date and time: 02/09/2023 7:42 AM Age: 72 years old Clinical indication: Pain in coccyx area; Patient HX: Pain mostly on left side, HX of breast cancer; Additional info: Left si pain TECHNIQUE: Imaging protocol: XR bilateral XR of the sacroiliac joints. Views: 3 or more views. COMPARISON: CR XR lumbar spine 2-3V* [id number] 01/10/2018 11:52 AM FINDINGS: Bones/joints: Normal. No acute fracture. Soft tissues: Normal. XR/XR sacroiliac jts m 3V [id number] IMPRESSION: No acute findings.
--- NOTE | 2023-02-09 07:45 | US_ITS ---
WS: [id number] RENAL ULTRASOUND URINARY BLADDER ULTRASOUND HISTORY: Elevated creatinine COMPARISON: None available. TECHNIQUE: 2-D and color Doppler imaging of the kidney submitted. Right kidney: 10.1 cm x 4.7 cm x 3.7 cm. Normal size kidney. There is a cyst in the mid to superior cortex measuring 2.2 x 2.1 x 1.9 cm. No so lid mass or increased vascularity. Left kidney: 9.6 cm x 4.9 cm x 4.0 cm. Normal size kidney. No hydronephrosis. Normal echogenicity. Small cortical cyst upper pole measures 1 .3 x 1.2 x 1.0 cm. Aorta: Poorly visualized. Urinary Bladder: Well-distended urinary bladder. Post void imaging reveals a small amount of urinary retention, 36 mL. IMPRESSION: 1. No hydronephrosis or solid mass. 2. Bilateral cortical cysts. 3. Small amount of post void retention.
== END 2023-02-09 07:20 | disposition home or self-care (01) ==
PROVIDERS: PCP Family Medicine; Visit Provider Family Medicine
DX: R79.89 Other specified abnormal findings of blood chemistry (principal); M46.1 Sacroiliitis, not elsewhere classified; R33.8 Other retention of urine; N28.1 Cyst of kidney, acquired
CPT/HCPCS: 72202; 76770; 76857

== ENCOUNTER → 2023-02-23 09:57 | Outpatient (BNVA) | payer MEDICARE, OTHER, SELFPAY | PROVIDERS: PCP Family Medicine; Visit Provider Family Medicine | DX: R79.89 Other specified abnormal findings of blood chemistry (principal); Z85.3 Personal history of malignant neoplasm of breast; D50.9 Iron deficiency anemia, unspecified | CPT/HCPCS: 80053; 85025 ==

== ENCOUNTER 2023-05-12 12:46 | Oncology outpatient (recurring) (ONCR) | payer MEDICARE, OTHER, SELFPAY ==
[2023-05-12 13:15] VITALS: BP 120/76; PULSE 74; RESP 16; TEMP 36.4; O2SAT 96
[2023-05-12 13:25] LABS: Basophils % 0.9 %; Eosinophils # 0.3 10^3/uL (0.0-0.8); Eosinophils % 6.5 %; Hematocrit 35.2 % (36-47); Lymphocytes # 1.2 10^3/uL (0.8-4.8); Lymphocytes % 25.7 %; Mean Corpuscular HGB Conc 33.2 g/dL (30-55); Mean Corpuscular Hemoglobin 28.3 pg (27-33); Mean Corpuscular Volume 85.2 fl (85-98); Mean Platelet Volume 9.2 fL (7.4-10.4); Monocytes # 0.5 10^3/uL (0.2-0.9); Monocytes % 10.2 %; Neutrophils # 2.62 10^3/uL (1.8-7.7); Neutrophils % 56.5 %; Nucleated Red Blood Cells % 0 %; Platelet Count 227 10^3/cmm (157-399); Red Blood Count 4.13 10^6/uL (3.85-5.65); Red Cell Distribution Width 13.9 % (12.1-15.1); White Blood Count 4.63 10^3/uL (3.29-11.43)
[2023-05-12 13:39] LABS: Alanine Aminotransferase 16 U/L (0-33); Albumin Level 4.4 g/dL (3.5-5.2); Alkaline Phosphatase 113 U/L (35-105); Aspartate Amino Transferase 25 U/L (0-32); Blood Urea Nitrogen 19 mg/dL (8-23); Calcium 10.1 mg/dL (8.5-10.5); Carbon Dioxide 28 mmol/L (22-29); Chloride 100 mmol/L (98-107); Globulin 2.5 g/dL (1.3-4.6); Glucose 104 mg/dL (65-115); Osmolality Calculated 291 mOsm/kg (285-295); Sodium 139 mmol/L (136-145); Total Bilirubin 0.5 mg/dL (0.15-1.2); Total Protein 6.9 g/dL (6.6-8.7)
[2023-05-12 13:41] LABS: Anion Gap 14.9 (5-19); Potassium 3.9 mmol/L (3.5-5.1)
== END 2023-05-15 23:59 | disposition home or self-care (01) ==
PROVIDERS: Nurse Practitioner Family; PCP Family Medicine; Visit Provider Internal Medicine Hematology & Oncology
DX: C50.211 Malignant neoplasm of upper-inner quadrant of right female breast (principal); Z17.0 Estrogen receptor positive status [ER+]; D50.9 Iron deficiency anemia, unspecified; Z79.811 Long term (current) use of aromatase inhibitors; Z79.899 Other long term (current) drug therapy; Z92.3 Personal history of irradiation
CPT/HCPCS: 36415; 80053; 85025; 99214

== ENCOUNTER 2023-06-22 12:48 | Outpatient (CLI) | payer MEDICARE, OTHER, SELFPAY ==
--- NOTE | 2023-06-22 13:00 | MM_ITS ---
WS: [email or web address] BILATERAL 3D TOMOSYNTHESIS DIGITAL DIAGNOSTIC MAMMOGRAPHY WITH CAD CLINICAL INFORMATION: history of breast cancer HISTORY: History of RIGHT lumpectomy COMPARISON: 2022 TECHNIQUE: Bilateral CC, MLO, and ML views. FINDINGS: The breasts are composed of heterogeneous fibroglandular density, which can limit the detection of sm all underlying mass lesions. Punctate and lucent centered calcifications. Surgical clips RIGHT breast . Vascular calcifications. Treatment-related changes skin thickening RIGHT breast. No suspicious focal mass, asymmetry, calcifications, or architectural distortion. No evidence of leonila gnancy. IMPRESSION: MM/[place] [id number] BI-RADS: 2-Benign FOLLOW UP: 1 Year Follow-up Recommend return to annual diagnostic mammography.
--- NOTE | 2023-06-22 13:30 | XR_ITS ---
WS: [email or web address] SCREENING DEXA SCAN [employer] (MM) CLINICAL INFORMATION: aromatase inhibitor use COMPARISON: 2020 FINDINGS: The L1-L4 bone mineral density measures 0.990 g/cm2. This corresponds to a T score score of -1.6 and Z score of -0.4. Left femoral neck bone mineral density measures 0.781 g/cm2. This corresponds to a T score of -1.8 an d Z score of -0.5. Right femoral neck bone mineral density measures 0.809 g/cm2. This corresponds to a T score -1.6of an d Z score of -0.2. Mean femoral neck bone mineral density measures 0.795 g/cm2. This corresponds to a T score of -1.7 an d Z score of -0.4. IMPRESSION: Osteopenia lumbar spine. Osteopenia femoral necks. Patient's FRAX calculated 10 year probability for major osteoporotic fracture is 16.2% and osteoporot ic hip fracture is 4.3%. Bone mineral density lumbar spine increased 6.6% Bone mineral density femoral necks decreased -6.1%
== END 2023-06-22 12:49 | disposition home or self-care (01) ==
LOC: RAD 12:49
PROVIDERS: PCP Family Medicine; Visit Provider Nurse Practitioner Family
DX: Z85.3 Personal history of malignant neoplasm of breast (principal); R92.323 Mammographic fibroglandular density, bilateral breasts; Z98.890 Other specified postprocedural states; R23.8 Other skin changes; R92.1 Mammographic calcification found on diagnostic imaging of breast
CPT/HCPCS: 77062; 77080; G0279

== ENCOUNTER 2023-07-06 13:32 | Oncology outpatient (recurring) (ONCR) | payer MEDICARE, OTHER, SELFPAY ==
[2023-07-06 14:33] LABS: Basophils % 0.7 %; Eosinophils # 0.2 10^3/uL (0.0-0.8); Hematocrit 38.6 % (36-47); Lymphocytes # 1.2 10^3/uL (0.8-4.8); Lymphocytes % 26.9 %; Mean Corpuscular HGB Conc 32.6 g/dL (30-55); Mean Corpuscular Hemoglobin 27.9 pg (27-33); Mean Corpuscular Volume 85.6 fl (85-98); Mean Platelet Volume 9.1 fL (7.4-10.4); Monocytes # 0.4 10^3/uL (0.2-0.9); Monocytes % 8.5 %; Neutrophils # 2.69 10^3/uL (1.8-7.7); Neutrophils % 58.7 %; Nucleated Red Blood Cells % 0 %; Platelet Count 227 10^3/cmm (157-399); Red Blood Count 4.51 10^6/uL (3.85-5.65); Red Cell Distribution Width 13.3 % (12.1-15.1); White Blood Count 4.58 10^3/uL (3.29-11.43)
[2023-07-06 14:51] LABS: Alanine Aminotransferase 16 U/L (0-33); Albumin Level 4.3 g/dL (3.5-5.2); Alkaline Phosphatase 102 U/L (35-105); Anion Gap 10.9 (5-19); Aspartate Amino Transferase 22 U/L (0-32); Blood Urea Nitrogen 21 mg/dL (8-23); Calcium 9.4 mg/dL (8.5-10.5); Carbon Dioxide 30 mmol/L (22-29); Chloride 100 mmol/L (98-107); Creatinine Clr Calc Pharmacy 46.4061; Globulin 2.5 g/dL (1.3-4.6); Glucose 106 mg/dL (65-115); Osmolality Calculated 287 mOsm/kg (285-295); Potassium 3.9 mmol/L (3.5-5.1); Sodium 137 mmol/L (136-145); Total Bilirubin 0.6 mg/dL (0.15-1.2); Total Protein 6.8 g/dL (6.6-8.7)
[2023-07-06 15:07] LABS: 25 Hydroxy Vitamin D 26 ng/mL (30-100)
== END 2023-07-14 23:59 | disposition home or self-care (01) ==
PROVIDERS: Nurse Practitioner Family; PCP Family Medicine; Visit Provider Internal Medicine Medical Oncology
DX: Z79.899 Other long term (current) drug therapy; Z79.811 Long term (current) use of aromatase inhibitors; Z17.0 Estrogen receptor positive status [ER+]; C50.811 Malignant neoplasm of overlapping sites of right female breast; R53.83 Other fatigue; Z92.3 Personal history of irradiation; E55.9 Vitamin D deficiency, unspecified; M85.89 Other specified disorders of bone density and structure, multiple sites
CPT/HCPCS: 36415; 80053; 82306; 85025; 99214

== ENCOUNTER 2023-08-24 11:54 | Outpatient (RCR) | payer MEDICARE, OTHER, SELFPAY | END 2023-09-13 23:59 | disposition home or self-care (01) | LOC: SPT 11:54 | PROVIDERS: PCP Family Medicine; Visit Provider Family Medicine | DX: M25.561 Pain in right knee (principal); M25.562 Pain in left knee | CPT/HCPCS: 97110; 97161 ==

== ENCOUNTER 2023-08-29 13:35 | Oncology outpatient (recurring) (ONCR) | payer MEDICARE, OTHER, SELFPAY ==
[2023-08-29 14:02] LABS: Basophils % 0.8 %; Eosinophils # 0.2 10^3/uL (0.0-0.8); Eosinophils % 4.8 %; Hematocrit 37.8 % (36-47); Lymphocytes % 21.5 %; Mean Corpuscular HGB Conc 32.8 g/dL (30-55); Mean Corpuscular Volume 85.3 fl (85-98); Monocytes # 0.5 10^3/uL (0.2-0.9); Monocytes % 9.3 %; Neutrophils # 3.07 10^3/uL (1.8-7.7); Neutrophils % 63.4 %; Nucleated Red Blood Cells % 0 %; Platelet Count 233 10^3/cmm (157-399); Red Blood Count 4.43 10^6/uL (3.85-5.65); Red Cell Distribution Width 13.3 % (12.1-15.1); White Blood Count 4.84 10^3/uL (3.29-11.43)
[2023-08-29 14:20] LABS: Alanine Aminotransferase 14 U/L (0-33); Albumin Level 4.5 g/dL (3.5-5.2); Alkaline Phosphatase 107 U/L (35-105); Aspartate Amino Transferase 24 U/L (0-32); Blood Urea Nitrogen 17 mg/dL (8-23); Calcium 9.9 mg/dL (8.5-10.5); Carbon Dioxide 28 mmol/L (22-29); Chloride 101 mmol/L (98-107); Globulin 2.8 g/dL (1.3-4.6); Glucose 130 mg/dL (65-115); Osmolality Calculated 295 mOsm/kg (285-295); Sodium 141 mmol/L (136-145); Total Bilirubin 0.8 mg/dL (0.15-1.2); Total Protein 7.3 g/dL (6.6-8.7)
[2023-08-29 14:36] LABS: 25 Hydroxy Vitamin D 35 ng/mL (30-100)
[2023-08-29 14:41] LABS: Anion Gap 15.9 (5-19); Potassium 3.9 mmol/L (3.5-5.1)
== END 2023-09-13 23:59 | disposition home or self-care (01) ==
PROVIDERS: Internal Medicine; PCP Family Medicine; Visit Provider Internal Medicine Medical Oncology
DX: C50.911 Malignant neoplasm of unspecified site of right female breast; Z79.899 Other long term (current) drug therapy; E55.9 Vitamin D deficiency, unspecified; M85.80 Other specified disorders of bone density and structure, unspecified site
CPT/HCPCS: 36415; 80053; 82306; 85025; 99213

== ENCOUNTER → 2023-09-13 14:44 | Outpatient (BNVA) | payer MEDICARE, OTHER, SELFPAY | PROVIDERS: PCP Family Medicine; Visit Provider Clinical Nurse Specialist Adult Health | DX: R30.0 Dysuria (principal); N39.0 Urinary tract infection, site not specified | CPT/HCPCS: 81000; 87077; 87086; 87184 ==

== ENCOUNTER 2023-09-14 06:00 | Outpatient (RCR) | payer MEDICARE, OTHER, SELFPAY | END 2023-10-14 23:59 | disposition home or self-care (01) | LOC: SPT 06:00 | PROVIDERS: PCP Family Medicine; Visit Provider Family Medicine | DX: M25.561 Pain in right knee (principal); M25.562 Pain in left knee | CPT/HCPCS: 97110 ==

== ENCOUNTER 2023-10-15 06:00 | Outpatient (RCR) | payer MEDICARE, OTHER, SELFPAY | END 2023-11-13 23:59 | disposition home or self-care (01) | LOC: SPT 06:00 | PROVIDERS: PCP Family Medicine; Visit Provider Family Medicine | DX: M25.561 Pain in right knee (principal); M25.562 Pain in left knee | CPT/HCPCS: 97110 ==

== ENCOUNTER 2023-11-14 06:00 | Outpatient (RCR) | payer MEDICARE, OTHER, SELFPAY | END 2023-11-16 23:59 | disposition home or self-care (01) | LOC: SPT 06:00 | PROVIDERS: PCP Family Medicine; Visit Provider Family Medicine | DX: M25.561 Pain in right knee (principal); M25.562 Pain in left knee | CPT/HCPCS: 97110 ==

== ENCOUNTER 2024-01-31 16:41 | Outpatient (CLI) | payer MEDICARE, OTHER, SELFPAY ==
--- NOTE | 2024-01-31 16:45 | XRR_ITS ---
PROCEDURE INFORMATION: Exam: XR Left Foot Exam date and time: 01/31/2024 4:54 PM Age: 73 years old Clinical indication: Pain; Foot; Left; Patient HX: HX of breast cancer; Additional info: Left foot pain - trauma years ago at base of 2nd/3rd toe TECHNIQUE: Imaging protocol: Radiologic exam of the left foot. Views: 3 or more views. COMPARISON: CR XR ankle LT 2V [id number] 01/31/2024 4:54 PM FINDINGS: Bones/joints: Mild spurring at the plantar aspect of the calcaneus. Moderate degenerative changes at the 2nd through 4th tarsometatarsal joints. Diffuse demineralization. No acute osseous, joint, or soft tissue abnormality. Soft tissues: See Bones/joints finding. XR/XR foot LT min 3V* [id number] IMPRESSION: No acute findings.
--- NOTE | 2024-01-31 16:45 | XRR_ITS ---
PROCEDURE INFORMATION: Exam: XR Left Knee Exam date and time: 01/31/2024 4:54 PM Age: 73 years old Clinical indication: Pain; Knee; Left; Patient HX: HX of breast cancer; Additional info: Knee pain left TECHNIQUE: Imaging protocol: Radiologic exam of the left knee. Views: 3 views. COMPARISON: CR XR ankle LT 2V [id number] 01/31/2024 4:54 PM FINDINGS: Bones/joints: Normal. No fracture or dislocation. No acute osseous or joint abnormality. Soft tissues: Normal. XR/XR knee LT 3V* [id number] IMPRESSION: No acute findings.
--- NOTE | 2024-01-31 16:45 | XRR_ITS ---
PROCEDURE INFORMATION: Exam: XR Left Ankle Exam date and time: 01/31/2024 4:54 PM Age: 73 years old Clinical indication: Pain; Ankle; Left; Patient HX: HX of breast cancer; Additional info: Left ankle pain TECHNIQUE: Imaging protocol: Radiologic exam of the left ankle. Views: 1 or 2 views. COMPARISON: CR XR foot LT min 3V* [id number] 01/31/2024 4:54 PM FINDINGS: Bones/joints: No fracture or dislocation. No acute osseous or joint abnormality. Soft tissues: Normal. XR/XR ankle LT 2V [id number] IMPRESSION: No acute findings.
== END 2024-01-31 16:42 | disposition home or self-care (01) ==
LOC: RAD 16:42
PROVIDERS: PCP Family Medicine; Visit Provider Family Medicine
DX: M19.072 Primary osteoarthritis, left ankle and foot (principal); M25.562 Pain in left knee
CPT/HCPCS: 73562; 73600; 73630

== ENCOUNTER → 2024-02-21 07:35 | Outpatient (BNVA) | payer MEDICARE, OTHER, SELFPAY | PROVIDERS: PCP Family Medicine; Visit Provider Podiatrist Foot & Ankle Surgery | DX: M25.572 Pain in left ankle and joints of left foot (principal); M76.72 Peroneal tendinitis, left leg; M19.172 Post-traumatic osteoarthritis, left ankle and foot; M79.672 Pain in left foot; D50.9 Iron deficiency anemia, unspecified; D64.9 Anemia, unspecified | CPT/HCPCS: 99203 ==

== ENCOUNTER 2024-02-22 14:52 | Outpatient (CLI) | payer MEDICARE, OTHER, SELFPAY ==
--- NOTE | 2024-02-22 15:15 | MR_ITS ---
WS: [id number] MRI LEFT ANKLE WITHOUT CONTRAST. COMPARISON: 01/31/2024 radiograph Multiplanar, multisequence imaging is performed without contrast. Mild flattening of the normal arch of the foot. No acute fracture or marrow edema noted in the distal tibia or fibula or talus. There is narrowing of the tibiotalar joint space and a small joint effusio n. Additional marrow edema is noted at the tarsal metatarsal articulation, greatest in the lateral fo ot. Tarsometatarsal joint spaces are narrowed with erosions and osteophytes and edema. Achilles tendon is normal. Plantar fascia is intact. Peroneal brevis and longus tendons and tendon sh eath are normal. Flexor hallucis longus, flexor digitorum longus and the posterior tibial tendon are appropriate. Posterior tibial tendon in relationship to the flexor digitorum longus is slightly enlar ged but there is no edema within the tendon or tendon sheath. There is a small amount of edema along the medial ankle. Torn anterior talofibular ligament at its attachment to the talus. Fluid gap is noted at its attachme nt to the talus. Posterior talofibular ligament is intact. Tibiofibular ligaments appear appropriate. Bands of the deltoid ligament are normal. Spring ligament is normal. Calcaneofibular ligament is sma ll but does appear to be intact. There is fluid in the distal tibiofibular syndesmosis. MR/MR ankle LT wo con* [id number] IMPRESSION: 1. Complete tear of the anterior talofibular ligament with fluid gap. There is adjacent fluid in the lateral ankle. 2. Fluid extends into the syndesmosis. 3. No acute fractures. 4. Moderate narrowing of the tibiotalar joint space. 5. Degenerative arthritic changes are noted at the tarsal metatarsal joint spa ce. Loss of the normal joint space with marrow edema and erosions. This is grea test involving the lateral articulation.
== END 2024-02-22 14:53 | disposition home or self-care (01) ==
LOC: RAD 14:52
PROVIDERS: PCP Family Medicine; Visit Provider Podiatrist Foot & Ankle Surgery
DX: S93.492A Sprain of other ligament of left ankle, initial encounter (principal); M19.072 Primary osteoarthritis, left ankle and foot; M76.72 Peroneal tendinitis, left leg; M19.172 Post-traumatic osteoarthritis, left ankle and foot; X58.XXXA Exposure to other specified factors, initial encounter
CPT/HCPCS: 73721

== ENCOUNTER 2024-03-02 08:45 | Oncology outpatient (recurring) (ONCR) | payer MEDICARE, OTHER, SELFPAY ==
[2024-02-28 12:34] LABS: Basophils % 0.6 %; Eosinophils # 0.2 10^3/uL (0.0-0.8); Hematocrit 40.4 % (36-47); Lymphocytes % 21.6 %; Mean Corpuscular HGB Conc 32.2 g/dL (30-55); Mean Corpuscular Volume 87.1 fl (85-98); Mean Platelet Volume 9.1 fL (7.4-10.4); Monocytes # 0.4 10^3/uL (0.2-0.9); Monocytes % 8.6 %; Neutrophils # 3.04 10^3/uL (1.8-7.7); Nucleated Red Blood Cells % 0 %; Platelet Count 241 10^3/cmm (157-399); Red Blood Count 4.64 10^6/uL (3.85-5.65); Red Cell Distribution Width 13.4 % (12.1-15.1); White Blood Count 4.76 10^3/uL (3.29-11.43)
[2024-02-28 12:55] LABS: Alanine Aminotransferase 17 U/L (0-33); Albumin Level 4.7 g/dL (3.5-5.2); Alkaline Phosphatase 111 U/L (35-105); Anion Gap 16.2 (5-19); Aspartate Amino Transferase 27 U/L (0-32); Blood Urea Nitrogen 21 mg/dL (8-23); Calcium 9.8 mg/dL (8.5-10.5); Carbon Dioxide 27 mmol/L (22-29); Chloride 100 mmol/L (98-107); Creatinine Clr Calc Pharmacy 54.0492; Globulin 2.6 g/dL (1.3-4.6); Glucose 108 mg/dL (65-115); Osmolality Calculated 292 mOsm/kg (285-295); Potassium 4.2 mmol/L (3.5-5.1); Sodium 139 mmol/L (136-145); Total Bilirubin 1.2 mg/dL (0.15-1.2); Total Protein 7.3 g/dL (6.6-8.7)
--- NOTE | 2024-03-02 08:45 | MR_ITS ---
WS: [email or web address] MRI LEFT KNEE NONCONTRAST TECHNIQUE: Axial PD, coronal PD fat sat, coronal PD, sagittal PD, and sagittal PD fat-sat images obta ined. CLINICAL INFORMATION: Likely meniscal tear - left knee pain COMPARISON: None. FINDINGS: Distal quadriceps and patella tendons are intact. ACL and PCL appear intact. Moderate suprapatellar e ffusion. 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 Medial and lateral patellar ret inaculum appear intact. Lobulated popliteal cyst measuring 3.2 x 1.2 cm. Normal lateral meniscus. Radial tear involving the posterior horn medial meniscus with peripheral ext rusion. Contusion with osteochondral injury involving the medial femoral condyle likely due to recent trauma with small osteochondral fracture. No displaced fragments. Grade 1 injury MCL which appears i ntact. Normal LCL. Normal popliteus. No other acute findings. MR/MR knee LT wo con* [id number] IMPRESSION: 1. ACL and PCL appear intact. 2. Radial tear involving the posterior horn medial meniscus with peripheral ex trusion of the medial meniscus. 3. Osteochondral injury involving the peripheral surface medial femoral condyl e with associated edema. No displaced loose fragments. 4. Advanced joint space narrowing medial joint compartment. 5. Grade IV chondromalacia patella with full-thickness cartilage defect and re active underlying bone marrow changes involving the medial patellar facet. 6. Moderate suprasellar effusion. 7. Lobulated popliteal cyst measuring 3.2 x 1.2 cm. Outbridge grading: grade IV: full-thickness cartilage loss with underlying bone reactive changes
== END 2024-03-15 23:59 | disposition home or self-care (01) ==
LOC: ONCMED 10:36 → RAD 03-03 00:01 → ONCMED 03-15 14:48
PROVIDERS: Internal Medicine; PCP Family Medicine; Visit Provider Family Medicine
DX: M25.562 Pain in left knee; Z53.9 Procedure and treatment not carried out, unspecified reason; S83.242A Other tear of medial meniscus, current injury, left knee, initial encounter; M25.862 Other specified joint disorders, left knee; M71.22 Synovial cyst of popliteal space [Baker], left knee; M22.42 Chondromalacia patellae, left knee; X58.XXXA Exposure to other specified factors, initial encounter
CPT/HCPCS: 36415; 73721; 80053; 85025; 99214

== ENCOUNTER → 2024-03-06 13:20 | Outpatient (BNVA) | payer MEDICARE, OTHER, SELFPAY | PROVIDERS: PCP Family Medicine; Visit Provider Podiatrist Foot & Ankle Surgery | DX: M19.072 Primary osteoarthritis, left ankle and foot; M89.8X7 Other specified disorders of bone, ankle and foot; S93.402A Sprain of unspecified ligament of left ankle, initial encounter; X58.XXXA Exposure to other specified factors, initial encounter | CPT/HCPCS: 99213 ==

== ENCOUNTER 2024-03-20 15:54 | Outpatient (CLI) | payer MEDICARE, OTHER, SELFPAY | END 2024-03-20 15:55 | disposition home or self-care (01) | LOC: SPT 15:54 | PROVIDERS: PCP Family Medicine; Visit Provider Podiatrist Foot & Ankle Surgery | DX: Z46.89 Encounter for fitting and adjustment of other specified devices (principal); M76.72 Peroneal tendinitis, left leg; M19.172 Post-traumatic osteoarthritis, left ankle and foot; M19.079 Primary osteoarthritis, unspecified ankle and foot; M79.672 Pain in left foot; M25.572 Pain in left ankle and joints of left foot | CPT/HCPCS: L3030 ==

== ENCOUNTER → 2024-04-17 13:00 | Outpatient (BNVA) | payer MEDICARE, OTHER, SELFPAY | PROVIDERS: PCP Family Medicine; Visit Provider Podiatrist Foot & Ankle Surgery | DX: M79.672 Pain in left foot (principal); M19.072 Primary osteoarthritis, left ankle and foot; M89.8X7 Other specified disorders of bone, ankle and foot; Z09 Encounter for follow-up examination after completed treatment for conditions other than malignant neoplasm; S93.402A Sprain of unspecified ligament of left ankle, initial encounter; W18.49XA Other slipping, tripping and stumbling without falling, initial encounter | CPT/HCPCS: 99213 ==

== ENCOUNTER → 2024-04-19 09:45 | Outpatient (BNVA) | payer MEDICARE, OTHER, SELFPAY | PROVIDERS: PCP Family Medicine; Visit Provider Specialist | DX: M25.562 Pain in left knee (principal); M17.12 Unilateral primary osteoarthritis, left knee; M23.204 Derangement of unspecified medial meniscus due to old tear or injury, left knee | CPT/HCPCS: 20610; 73560; 73565; 99204; J7318 ==

== ENCOUNTER 2024-06-27 12:38 | Oncology outpatient (recurring) (ONCR) | payer MEDICARE, OTHER, SELFPAY ==
--- NOTE | 2024-06-27 13:00 | MM_ITS ---
WS: [email or web address] BILATERAL 3D TOMOSYNTHESIS DIGITAL DIAGNOSTIC MAMMOGRAPHY WITH CAD CLINICAL INFORMATION: history of breast cancer HISTORY: History of breast cancer COMPARISON: 2023 TECHNIQUE: Bilateral CC, MLO, and ML views. FINDINGS: The breasts are composed of heterogeneous fibroglandular density, which can limit the detection of small underlying mass lesions. Surgical clips RIGHT breast. Incidental punctate and lucent centered calcifications. Skin thickening RIGHT breast. Vascular calcification. No suspicious focal mass, asymmetry, calcifications, or architectural distortion. No evidence of malignancy. MM/MM diag tomosynthesis [id number] IMPRESSION: DENSITY: The breasts are heterogeneously dense, which may obscure small masses. BI-RADS: 2 - Benign FOLLOW UP: 1 Year Follow-up Recommend return to annual diagnostic mammography.
== END 2024-07-13 23:59 | disposition home or self-care (01) ==
LOC: RAD 12:38 → ONCMED 06-28 09:27
PROVIDERS: PCP Family Medicine; Visit Provider Nurse Practitioner Family
DX: C50.911 Malignant neoplasm of unspecified site of right female breast (principal); Z85.3 Personal history of malignant neoplasm of breast; Z79.899 Other long term (current) drug therapy; M25.562 Pain in left knee; E55.9 Vitamin D deficiency, unspecified; M85.80 Other specified disorders of bone density and structure, unspecified site
CPT/HCPCS: 77062; G0279

== ENCOUNTER → 2024-08-01 10:53 | Outpatient (BNVA) | payer MEDICARE, OTHER, SELFPAY | PROVIDERS: PCP Family Medicine; Visit Provider Nurse Practitioner Family | DX: L30.9 Dermatitis, unspecified (principal); L82.1 Other seborrheic keratosis; D22.4 Melanocytic nevi of scalp and neck; L81.3 Cafe au lait spots; L90.5 Scar conditions and fibrosis of skin | CPT/HCPCS: 99203 ==

== ENCOUNTER 2024-08-23 12:54 | Oncology outpatient (recurring) (ONCR) | payer MEDICARE, OTHER, SELFPAY ==
[2024-08-23 13:11] LABS: Basophils # 0.1 10^3/uL (0.0-0.1); Eosinophils # 0.3 10^3/uL (0.0-0.8); Eosinophils % 5.1 %; Hematocrit 39.3 % (36-47); Lymphocytes # 1.4 10^3/uL (0.8-4.8); Lymphocytes % 26.7 %; Mean Corpuscular HGB Conc 32.3 g/dL (30-55); Mean Corpuscular Hemoglobin 28.2 pg (27-33); Mean Corpuscular Volume 87.3 fl (85-98); Mean Platelet Volume 9.6 fL (7.4-10.4); Monocytes # 0.6 10^3/uL (0.2-0.9); Monocytes % 10.8 %; Neutrophils # 2.87 10^3/uL (1.8-7.7); Neutrophils % 56.2 %; Nucleated Red Blood Cells % 0 %; Platelet Count 242 10^3/cmm (157-399); Red Cell Distribution Width 13.2 % (12.1-15.1)
[2024-08-23 13:27] LABS: Alanine Aminotransferase 12 U/L (0-33); Albumin Level 4.5 g/dL (3.5-5.2); Alkaline Phosphatase 118 U/L (35-105); Anion Gap 14.8 (5-19); Aspartate Amino Transferase 16 U/L (0-32); Blood Urea Nitrogen 18 mg/dL (8-23); Calcium 9.6 mg/dL (8.5-10.5); Carbon Dioxide 27 mmol/L (22-29); Chloride 100 mmol/L (98-107); Globulin 2.5 g/dL (1.3-4.6); Glucose 93 mg/dL (65-115); Osmolality Calculated 288 mOsm/kg (285-295); Potassium 3.8 mmol/L (3.5-5.1); Sodium 138 mmol/L (136-145); Total Bilirubin 1.1 mg/dL (0.15-1.2)
== END 2024-09-12 23:59 | disposition home or self-care (01) ==
PROVIDERS: PCP Family Medicine; Visit Provider Nurse Practitioner Family
DX: C50.911 Malignant neoplasm of unspecified site of right female breast (principal); E55.9 Vitamin D deficiency, unspecified; M85.89 Other specified disorders of bone density and structure, multiple sites; Z79.899 Other long term (current) drug therapy; Z79.818 Long term (current) use of other agents affecting estrogen receptors and estrogen levels
CPT/HCPCS: 36415; 80053; 85025; 99213

== ENCOUNTER → 2024-09-03 09:35 | Outpatient (BNVA) | payer MEDICARE, OTHER, SELFPAY | PROVIDERS: PCP Family Medicine; Visit Provider Nurse Practitioner Family | DX: L57.8 Other skin changes due to chronic exposure to nonionizing radiation (principal); L81.4 Other melanin hyperpigmentation; L30.0 Nummular dermatitis | CPT/HCPCS: 99214 ==

== ENCOUNTER 2024-09-20 08:54 | Emergency (ER) | payer MEDICARE, OTHER, SELFPAY ==
[2024-09-20 09:08] VITALS: BP 124/60; PULSE 72; RESP 18; TEMP 36.8; O2SAT 95; BMI 27.3
--- NOTE | 2024-09-20 09:15 | XR_ITS ---
WS: [email or web address] XR ankle LT min 3V* [id number] REASON FOR EXAM: trauma FINDINGS: No acute fracture. Left ankle unchanged compared to 01/31/2024. Joint spaces are intact and relatively well preserved. XR/XR ankle LT min 3V* [id number] IMPRESSION: Stable ankle without acute abnormality.
--- NOTE | 2024-09-20 09:15 | XR_ITS ---
WS: [email or web address] XR knee RT 3V* [id number] REASON FOR EXAM: trauma FINDINGS: Compared to a standing upright AP view of the right knee of 04/19/2024 there is subtle deformity of the posterior lateral tibial plateau which may represent an occult tibial plateau fracture. The remaining bone and joint structure of the right knee is intact without abnormality. XR/XR knee RT 3V* [id number] IMPRESSION: Possible lateral tibial plateau fracture with minimal depression and displaceme nt.
--- NOTE | 2024-09-20 10:12 | CT_ITS ---
WS: [id number] NONCONTRAST CT RIGHT KNEE TECHNIQUE: Noncontrast CT RIGHT knee with coronal and sagittal reformatted images. CLINICAL INFORMATION: Trauma DLP: 335.[address] scans at [facility] use at least one of these dose optimization techniques: automated exposure control; mA and/or kV adjustment per patient size (includes targeted exams where dose is matched to clinical indication); or iterative reconstruction. FINDINGS: Comminuted lateral tibial plateau fracture with depression measuring approximately 3 mm. Normal femoral condyles. Fibula head appears normal. Small suprapatellar effusion. Soft tissue edema of the joint line and popliteal fossa. Moderate tricompartment arthritis. Subchondral cystic change medial patellar facet. CT/CT knee RT wo con* [id number] IMPRESSION: Comminuted lateral tibial plateau fracture with 3 mm of depression.
[2024-09-20 10:19] VITALS: BP 128/72; PULSE 60; O2SAT 95
--- NOTE | 2024-09-20 11:39 | W.ED.FALL ---
HPI - Fall General: Chief Complaint: Fall Stated Complaint: L ankle Pain and R knee pain Time Seen by Provider: 09/20/24 08:56 History of Present Illness: 73-year-old female presents emergency room for lower extremity pain. She was getting out of a chair in her leg had fallen asleep. She does complain injured her left ankle and inversion injury when she tried to catch herself she injured her right knee. She has not been able to bear weight. She complaining of severe pain particularly in the right knee. There is a moderate amount of swelling there she denies any other injury. Associated symptoms-after fall: Denies abdominal pain, chest pain or neck pain Related Data Home Medications ?Medication ?Instructions ?Recorded ?Confirmed calcium 333 mg-vit D3 200 1 tab PO DAILY 05/23/20 09/20/24 unit-magnesium 133 mg-zinc 5 mg tablet cetirizine 10 mg capsule (All Day 10 mg PO DAILY PRN Allergy Symptoms 08/23/24 09/20/24 Allergy (cetirizine)) acetaminophen 325 mg tablet 650 mg PO QID PRN Fever Or Pain 09/20/24 09/20/24 (Tylenol) collagen,hydrolysate 500 mg-biotin 1 cap PO DAILY 09/20/24 09/20/24 800 mcg-ascorbic acid 50 mg capsule (Collagen 1500 Plus C) melatonin 10 mg tablet 10 mg PO BEDTIME PRN sleep 09/20/24 09/20/24 Previous Rx's ?Medication ?Instructions ?Recorded hydrochlorothiazide 25 mg tablet See Rx Instructions .Route 01/17/24 .COMPLEX #90 tabs losartan 50 mg tablet See Rx Instructions .Route 01/27/24 .COMPLEX #90 tabs SOLE SUPPORTS #1 ea 02/21/24 amlodipine 2.5 mg tablet See Rx Instructions .Route 03/28/24 .COMPLEX #180 tabs cyclobenzaprine 10 mg tablet See Rx Instructions .Route 05/16/24 .COMPLEX #30 tabs pantoprazole 40 mg tablet,delayed See Rx Instructions .Route 06/11/24 release .COMPLEX #90 tabs sertraline 50 mg tablet See Rx Instructions .Route 06/13/24 .COMPLEX #90 tabs clobetasol 0.05 % topical ointment 1 applic topical BID #60 grams 06/26/24 exemestane 25 mg tablet 25 mg PO DAILY #30 tabs 07/18/24 atorvastatin 40 mg tablet See Rx Instructions .Route 09/17/24 .COMPLEX #90 tabs metoprolol tartrate 100 mg tablet See Rx Instructions .Route 09/17/24 .COMPLEX #180 tabs hydrocodone 5 mg-acetaminophen 325 1 tab PO Q6H PRN pain #20 tabs 09/20/24 mg tablet Allergies Allergy/AdvReac Type Severity Reaction Status Date / Time meperidine (From Demerol) Allergy ADR-Vomitin Verified 08/23/24 13:42 g Review of Systems Const: Denies: fever(s) or chills Card: Denies: chest pain Resp: Denies: dyspnea GI: Denies: abdominal pain Musc: Reports: joint pain and joint swelling; Denies: neck pain or back pain Skin/Breast: Denies: rash PFSH ED PFSH: Medical History Iron deficiency anemia Breast cancer, right GERD (gastroesophageal reflux disease) Hiatal hernia Hypertension Hyperlipidemia Arthritis Depression Mitral valve prolapse Surgical History Status post right breast lumpectomy (06/04/20) sentinel lymph node biopsy H/O unilateral oophorectomy left H/O: hysterectomy History of lumpectomy of left breast History of lumpectomy of right breast History of cataract surgery H/O colonoscopy 2015 Family History Family/Other Cancer maternal side, an aunt and 3 cousins with breast cancer Other CAD (coronary artery disease) Hypertension Denies family history of Diabetes Anesthesia complication Bleeding disorder Social History Smoking and tobacco/nicotine status: never used tobacco/nicotine Alcohol intake: never Substance/Drug Use: never Household members: spouse Marital status: Current occupational status: retired Physical Exam Const: GENERAL APPEARANCE: cooperative ORIENTATION/CONSCIOUSNESS: Yes awake, Yes oriented to person, Yes oriented to place and Yes oriented to time HENMT: COMMON NORMALS: normocephalic, atraumatic and hearing grossly normal bilaterally HEAD & SCALP: normocephalic and atraumatic Resp: COMMON NORMALS: normal respiratory effort, No retractions, No use of accessory muscles and clear to auscultation bilaterally AUSCULTATION: clear to auscultation bilaterally Cardio: COMMON NORMALS: regular rate, regular rhythm and No murmurs present (Cardio) RATE: regular rate RHYTHM: regular rhythm GI: COMMON NORMALS: Soft to palpation and No hepatosplenomegaly present AUSCULTATION: Yes normoactive bowel sounds PALPATION: Yes Soft to palpation, No Tenderness to palpation present (GI), No Guarding due to palpation present (GI) and Yes No hepatosplenomegaly present Extremity: COMMON NORMALS: no clubbing, cyanosis or edema and no calf tenderness OTHER: Moderate swelling and tenderness of the right knee and able to flex and extend but she has a fair amount of pain she could flex and extend actively as well. Dorsalis pedis posterior tibialis pulse are normal. Examination left ankle moderate swelling over the lateral malleolus no ecchymosis dorsalis pedis posterior tibialis pulses intact neurovascularly intact bilaterally Neuro: SENSORIUM/ORIENTATION: Yes oriented to person, Yes oriented to place and Yes oriented to time Skin: COMMON NORMALS: no rashes or lesions noted GENERAL SKIN EXAM: no rashes or lesions noted Course Vital Signs: Vital signs: Vital Signs Temperature 98.2 F 09/20/24 09:08 Pulse Rate 61 09/20/24 14:56 Respiratory Rate 18 09/20/24 09:08 Blood Pressure 161/76 09/20/24 14:56 Pulse Oximetry 95 09/20/24 14:56 Oxygen Delivery Me thod Room Air 09/20/24 09:08 MDM - Fall Medical Decision Making Lateral tibial plateau fracture. Not easily seen on plain film but demonstrated on CT. There is no fracture on the right ankle. Reviewed imaging with Dr. Greenfield is on-call for orthopedics. He recommends knee immobilizer. Unfortunately patient cannot stand because he cannot use her left ankle or bear weight on her right leg will get her to a wheelchair. Finally we will refer to orthopedics she is already established with podiatry she had a previous problem with the left ankle which states still been dealing with it seems to have been exacerbated there is no acute fracture if you persist having pain they can order advanced imaging as needed. Medical Records I reviewed the patient's medical records. Lab Data Radiology Impressions Ankle X-Ray 09/20/24 09:15 IMPRESSION: Stable ankle without acute abnormality. Knee X-Ray 09/20/24 09:15 IMPRESSION: Possible lateral tibial plateau fracture with minimal depression and displacement. Knee CT 09/20/24 10:12 IMPRESSION: Comminuted lateral tibial plateau fracture with 3 mm of depression. All radiology interpretation(s) finalized by discharge Discharge Plan Discharge Patient Disposition: Home Clinical Impression: Closed fracture of lateral portion of right tibial plateau, Left ankle sprain Prescriptions: New hydrocodone-acetaminophen 5-325 mg tablet 1 tab PO Q6H PRN (Reason: pain) Qty: 20 0RF No Action calcium carb-D3-mag [id number] [phone] [id number] tablet 1 tab PO DAILY Rx Instructions: administer with a meal (DME) SOLE SUPPORTS See Rx Instructions .Route .MEDSUPPLY Qty: 1 0RF Rx Instructions: As directed clobetasol 0.05 % ointment 1 applic topical BID Qty: 60 3RF All Day Allergy (cetirizine) 10 mg capsule 10 mg PO DAILY PRN (Reason: Allergy Symptoms) hydrochlorothiazide 25 mg tablet See Rx Instructions .ROUTE .COMPLEX Qty: 90 3RF Dose Instruction: TAKE 1 TABLET BY MOUTH EVERY DAY FOR HIGH BLOOD PRESSURE Rx Instructions: TAKE 1 TABLET BY MOUTH EVERY DAY FOR HIGH BLOOD PRESSURE losartan 50 mg tablet See Rx Instructions .ROUTE .COMPLEX Qty: 90 3RF Dose Instruction: TAKE 1 TABLET BY MOUTH EVERY DAY Rx Instructions: TAKE 1 TABLET BY MOUTH EVERY DAY amlodipine 2.5 mg tablet See Rx Instructions .ROUTE .COMPLEX Qty: 180 4RF Dose Instruction: TAKE 1 TABLET BY MOUTH TWICE A DAY Rx Instructions: TAKE 1 TABLET BY MOUTH TWICE A DAY cyclobenzaprine 10 mg tablet See Rx Instructions .ROUTE .COMPLEX Qty: 30 6RF Dose Instruction: TAKE 1 TABLET BY MOUTH EVERY DAY AT BEDTIME NEEDED Rx Instructions: TAKE 1 TABLET BY MOUTH EVERY DAY AT BEDTIME NEEDED pantoprazole 40 mg tablet,delayed release (DR/EC) See Rx Instructions .ROUTE .COMPLEX Qty: 90 3RF Dose Instruction: TAKE 1 TABLET BY MOUTH EVERY DAY Rx Instructions: TAKE 1 TABLET BY MOUTH EVERY DAY sertraline 50 mg tablet See Rx Instructions .ROUTE .COMPLEX Qty: 90 3RF Dose Instruction: TAKE 1 TABLET BY MOUTH EVERY DAY Rx Instructions: TAKE 1 TABLET BY MOUTH EVERY DAY exemestane 25 mg tablet 25 mg PO DAILY Qty: 30 4RF Rx Instructions: must administer after a meal atorvastatin 40 mg tablet See Rx Instructions .ROUTE .COMPLEX Qty: 90 3RF Dose Instruction: TAKE 1 TABLET BY MOUTH EVERY DAY IN THE EVENING FOR CHOLESTEROL Rx Instructions: TAKE 1 TABLET BY MOUTH EVERY DAY IN THE EVENING FOR CHOLESTEROL metoprolol tartrate 100 mg tablet See Rx Instructions .ROUTE .COMPLEX Qty: 180 3RF Dose Instruction: TAKE 1 TABLET BY MOUTH TWICE A DAY Rx Instructions: TAKE 1 TABLET BY MOUTH TWICE A DAY melatonin 10 mg Tablet 10 mg PO BEDTIME PRN (Reason: sleep ) acetaminophen [Tylenol] 325 mg Tablet 650 mg PO QID PRN (Reason: Fever Or Pain) Collagen 1500 Plus C 500 mg-800 mcg- 50 mg Capsule 1 cap PO DAILY Discharge Orders: Discharge ED (Routine); Ordered 09/20/24 Ordered By: Larry Bhat Other Ambulatory Orders: DME: Wheelchair (Order) Location: None Selected Ordered By: Larry Bhat Referrals: Khadar Michelle MD [Primary Care Provider, Family Practice] Discharge Diet: Usual diet Discharge Activity: Resume usual activity Patient Instructions: Opioid Safety, Pain Management Activity Restrictions/Additional Instructions: Thank you for choosing [facility] for your healthcare needs today. It is very important that you follow up as instructed or that you return to the Emergency Department should you have concerns or if your condition changes or worsens in any way. You were seen in the emergency room after a fall. X-rays did not show any distinct fractures of the left ankle there is a questionable Frankl fracture of the right knee. CT confirmed a lateral tibial plateau fracture. This is not in the weightbearing portion of the joint. I discussed with the orthopedist he recommends that you wear a knee immobilizer you cannot bear any weight on the right leg. You follow-up with podiatry for your ankle and with Dr. Greenfield for your right knee. Elevate the Print Language: Afghan Coding Level of Care Code ED Home Service Director for Antonio Amador
[2024-09-20 14:56] VITALS: BP 161/76; PULSE 61; O2SAT 95
--- NOTE | 2024-09-24 13:31 | DCPLANNER ---
messaged ortho for er f/u appt
== END 2024-09-20 14:58 | disposition home or self-care (01) ==
PROVIDERS: Emergency Provider Family Medicine; PCP Family Medicine
DX: S93.402A Sprain of unspecified ligament of left ankle, initial encounter (principal); S82.141A Displaced bicondylar fracture of right tibia, initial encounter for closed fracture; E78.5 Hyperlipidemia, unspecified; I10 Essential (primary) hypertension; Z85.3 Personal history of malignant neoplasm of breast; W07.XXXA Fall from chair, initial encounter
CPT/HCPCS: 29530; 73562; 73610; 73700; 99284

== ENCOUNTER → 2024-09-27 13:23 | Outpatient (BNVA) | payer MEDICARE, OTHER, SELFPAY | PROVIDERS: PCP Family Medicine; Visit Provider Podiatrist Foot & Ankle Surgery | DX: S93.402A Sprain of unspecified ligament of left ankle, initial encounter (principal); X50.9XXA Other and unspecified overexertion or strenuous movements or postures, initial encounter | CPT/HCPCS: 99214 ==

== ENCOUNTER 2024-09-28 09:17 | Outpatient (CLI) | payer MEDICARE, OTHER, SELFPAY | END 2024-09-28 09:18 | disposition home or self-care (01) | LOC: SPT 09:19 | PROVIDERS: PCP Family Medicine; Visit Provider Podiatrist Foot & Ankle Surgery | DX: Z46.89 Encounter for fitting and adjustment of other specified devices (principal); S93.402D Sprain of unspecified ligament of left ankle, subsequent encounter; X58.XXXD Exposure to other specified factors, subsequent encounter | CPT/HCPCS: L1902 ==

== ENCOUNTER → 2024-09-28 12:17 | Outpatient (BNVA) | payer MEDICARE, OTHER, SELFPAY | PROVIDERS: PCP Family Medicine; Visit Provider Student in an Organized Health Care Education/Training Program | DX: S82.121A Displaced fracture of lateral condyle of right tibia, initial encounter for closed fracture (principal); X58.XXXA Exposure to other specified factors, initial encounter | CPT/HCPCS: 73560; 73565 ==

== ENCOUNTER 2024-09-28 13:08 | Outpatient (CLI) | payer MEDICARE, OTHER, SELFPAY | END 2024-09-28 13:09 | disposition home or self-care (01) | LOC: SPT 13:09 | PROVIDERS: PCP Family Medicine; Visit Provider Student in an Organized Health Care Education/Training Program | DX: Z46.89 Encounter for fitting and adjustment of other specified devices (principal); T14.8XXD Other injury of unspecified body region, subsequent encounter; W19.XXXD Unspecified fall, subsequent encounter | CPT/HCPCS: 99204; L1832 ==

== ENCOUNTER → 2024-11-05 11:11 | Outpatient (BNVA) | payer MEDICARE, OTHER, SELFPAY | PROVIDERS: PCP Family Medicine; Visit Provider Podiatrist Foot & Ankle Surgery | DX: S93.402D Sprain of unspecified ligament of left ankle, subsequent encounter (principal); X58.XXXD Exposure to other specified factors, subsequent encounter | CPT/HCPCS: 99213 ==

== ENCOUNTER → 2024-11-07 08:00 | Outpatient (BNVA) | payer MEDICARE, OTHER, SELFPAY | PROVIDERS: PCP Family Medicine; Visit Provider Student in an Organized Health Care Education/Training Program | DX: S82.121A Displaced fracture of lateral condyle of right tibia, initial encounter for closed fracture (principal); X58.XXXA Exposure to other specified factors, initial encounter | CPT/HCPCS: 73562; 99213 ==

== ENCOUNTER 2024-11-07 08:47 | Outpatient (CLI) | payer MEDICARE, OTHER, SELFPAY | END 2024-11-07 08:48 | disposition home or self-care (01) | LOC: SPT 08:47 | PROVIDERS: PCP Family Medicine; Visit Provider Student in an Organized Health Care Education/Training Program | DX: Z46.89 Encounter for fitting and adjustment of other specified devices (principal); M25.561 Pain in right knee | CPT/HCPCS: 97760; L1812 ==

== ENCOUNTER → 2024-11-21 08:36 | Outpatient (BNVA) | payer MEDICARE, OTHER, SELFPAY | PROVIDERS: PCP Family Medicine; Visit Provider Physician Assistant | DX: S82.121A Displaced fracture of lateral condyle of right tibia, initial encounter for closed fracture (principal); X58.XXXA Exposure to other specified factors, initial encounter | CPT/HCPCS: 73560; 73565; 99213 ==

== ENCOUNTER → 2024-12-26 09:44 | Outpatient (BNVA) | payer MEDICARE, OTHER, SELFPAY | PROVIDERS: PCP Family Medicine; Visit Provider Physician Assistant | DX: S82.121A Displaced fracture of lateral condyle of right tibia, initial encounter for closed fracture (principal); X58.XXXA Exposure to other specified factors, initial encounter | CPT/HCPCS: 73560; 73565; 99213 ==

== ENCOUNTER → 2025-03-04 13:06 | Outpatient (BNVA) | payer MEDICARE, OTHER, SELFPAY | PROVIDERS: PCP Family Medicine; Visit Provider Nurse Practitioner Family | DX: L30.0 Nummular dermatitis (principal); L57.8 Other skin changes due to chronic exposure to nonionizing radiation; L81.4 Other melanin hyperpigmentation | CPT/HCPCS: 99214 ==

== ENCOUNTER 2025-03-13 13:17 | Oncology outpatient (recurring) (ONCR) | payer MEDICARE, OTHER, SELFPAY ==
--- NOTE | 2025-02-13 13:00 | XR_ITS ---
WS: [id number] DEXA (DUAL ENERGY X-RAY ABSORPTIOMETRY) Bone mineral density was performed using a [employer] machine. HISTORY: aromatase inhibitor use COMPARISON: 06/22/2023 Lumbar spine BMD (L1-L4): 0.913 g/cm2 T score: -2.2 Z score: -1.1 Total hip BMD: Left: 0.760 g/cm2. T score: -2.0 Z score: -0.6 Right: 0.789 g/cm2. T score: -1.7 Z score: -0.4 10 year probability of a major osteoporotic fracture is 25.6%. Compared to the prior study from 06/22/2023. Lumbar spine bone mineral density has decreased by 7.8%. Bilateral hips bone mineral density has decreased by 2.6%. XR/XR DEXA axial skeleton* [id number] IMPRESSION: OSTEOPENIA based upon the WHO classification for females. Significant decrease in bone mineral density in both the lumbar spine and hips since the prior study.
[2025-02-21 12:59] LABS: Hematocrit 36.7 % (36-47); Hemoglobin 11.90 g/dL (11.27-16.99); Mean Corpuscular HGB Conc 32.4 g/dL (30-55); Mean Corpuscular Hemoglobin 28.0 pg (27-33); Mean Corpuscular Volume 86.4 fl (85-98); Nucleated Red Blood Cells % 0 %; Platelet Count 232 10^3/cmm (157-399); Red Blood Count 4.25 10^6/uL (3.85-5.65); White Blood Count 4.27 10^3/uL (3.29-11.43)
[2025-02-21 13:21] LABS: Alanine Aminotransferase 12 U/L (0-33); Albumin Level 4.4 g/dL (3.5-5.2); Alkaline Phosphatase 127 U/L (35-105); Anion Gap 14.4 (5-19); Aspartate Amino Transferase 17 U/L (0-32); Blood Urea Nitrogen 16 mg/dL (8-23); Calcium 9.5 mg/dL (8.5-10.5); Carbon Dioxide 27 mmol/L (22-29); Chloride 105 mmol/L (98-107); Globulin 2.5 g/dL (1.3-4.6); Glucose 101 mg/dL (65-115); Osmolality Calculated 295 mOsm/kg (285-295); Potassium 4.4 mmol/L (3.5-5.1); Sodium 142 mmol/L (136-145); Total Protein 6.9 g/dL (6.6-8.7)
[2025-03-13 13:41] LABS: Hematocrit 38.4 % (36-47); Hemoglobin 12.40 g/dL (11.27-16.99); Mean Corpuscular HGB Conc 32.3 g/dL (30-55); Mean Corpuscular Hemoglobin 27.7 pg (27-33); Mean Corpuscular Volume 85.9 fl (85-98); Nucleated Red Blood Cells % 0 %; Platelet Count 224 10^3/cmm (157-399); Red Blood Count 4.47 10^6/uL (3.85-5.65); White Blood Count 4.14 10^3/uL (3.29-11.43)
[2025-03-13 13:56] LABS: Alanine Aminotransferase 12 U/L (0-33); Albumin Level 4.6 g/dL (3.5-5.2); Alkaline Phosphatase 141 U/L (35-105); Anion Gap 16.0 (5-19); Aspartate Amino Transferase 17 U/L (0-32); Blood Urea Nitrogen 13 mg/dL (8-23); Calcium 9.7 mg/dL (8.5-10.5); Carbon Dioxide 25 mmol/L (22-29); Chloride 100 mmol/L (98-107); Creatinine Clr Calc Pharmacy 59.2544; Globulin 2.3 g/dL (1.3-4.6); Glucose 87 mg/dL (65-115); Osmolality Calculated 283 mOsm/kg (285-295); Potassium 4.0 mmol/L (3.5-5.1); Sodium 137 mmol/L (136-145); Total Protein 6.9 g/dL (6.6-8.7)
== END 2025-03-15 23:59 | disposition home or self-care (01) ==
PROVIDERS: Internal Medicine; PCP Family Medicine; Visit Provider Nurse Practitioner Family
DX: Z53.9 Procedure and treatment not carried out, unspecified reason; Z08 Encounter for follow-up examination after completed treatment for malignant neoplasm; Z85.3 Personal history of malignant neoplasm of breast; E55.9 Vitamin D deficiency, unspecified; M85.80 Other specified disorders of bone density and structure, unspecified site; Z92.3 Personal history of irradiation; Z79.899 Other long term (current) drug therapy; Z79.811 Long term (current) use of aromatase inhibitors
CPT/HCPCS: 36415; 77080; 80053; 82306; 85025; 99213; 99214

== ENCOUNTER 2025-03-27 13:54 | Oncology outpatient (recurring) (ONCR) | payer MEDICARE, OTHER, SELFPAY ==
[2025-03-27 14:50] LABS: Hematocrit 37.7 % (36-47); Hemoglobin 12.20 g/dL (11.27-16.99); Mean Corpuscular HGB Conc 32.4 g/dL (30-55); Mean Corpuscular Hemoglobin 27.5 pg (27-33); Mean Corpuscular Volume 84.9 fl (85-98); Nucleated Red Blood Cells % 0 %; Platelet Count 243 10^3/cmm (157-399); Red Blood Count 4.44 10^6/uL (3.85-5.65); White Blood Count 5.61 10^3/uL (3.29-11.43)
[2025-03-27 15:00] LABS: Alanine Aminotransferase 15 U/L (0-33); Albumin Level 4.4 g/dL (3.5-5.2); Alkaline Phosphatase 126 U/L (35-105); Anion Gap 15.4 (5-19); Aspartate Amino Transferase 18 U/L (0-32); Blood Urea Nitrogen 16 mg/dL (8-23); Calcium 9.8 mg/dL (8.5-10.5); Carbon Dioxide 27 mmol/L (22-29); Chloride 101 mmol/L (98-107); Creatinine Clr Calc Pharmacy 66.6079; Globulin 2.4 g/dL (1.3-4.6); Glucose 103 mg/dL (65-115); Osmolality Calculated 289 mOsm/kg (285-295); Potassium 4.4 mmol/L (3.5-5.1); Sodium 139 mmol/L (136-145); Total Protein 6.8 g/dL (6.6-8.7)
[2025-03-27] MEDS: denosumab-bbdz 60 MG Syringe SUBCUT (15:40)
== END 2025-04-14 23:59 | disposition home or self-care (01) ==
PROVIDERS: PCP Family Medicine; Visit Provider Nurse Practitioner Family
DX: Z53.9 Procedure and treatment not carried out, unspecified reason (principal); Z08 Encounter for follow-up examination after completed treatment for malignant neoplasm; Z85.3 Personal history of malignant neoplasm of breast; E55.9 Vitamin D deficiency, unspecified; M85.80 Other specified disorders of bone density and structure, unspecified site; Z92.3 Personal history of irradiation; Z79.899 Other long term (current) drug therapy; Z79.811 Long term (current) use of aromatase inhibitors; C50.911 Malignant neoplasm of unspecified site of right female breast; D64.9 Anemia, unspecified
CPT/HCPCS: 36415; 80053; 85025; 96372; 99215; Q5136

== ENCOUNTER → 2025-04-02 10:20 | Outpatient (BNVA) | payer MEDICARE, OTHER, SELFPAY | PROVIDERS: PCP Family Medicine; Visit Provider Physician Assistant | DX: S82.121D Displaced fracture of lateral condyle of right tibia, subsequent encounter for closed fracture with routine healing (principal); X58.XXXD Exposure to other specified factors, subsequent encounter; M17.11 Unilateral primary osteoarthritis, right knee | CPT/HCPCS: 73560; 73565; 99213 ==